=== PATIENT | male | born 1945 | race Caucasian/White ===

== ENCOUNTER 2016-10-11 11:16 | Inpatient (IN) | payer OTHER, MEDICARE ==
[2016-10-11] MEDS ORDERED: Aspirin Low Dose CHEW TAB* 81 MG PO ONE (11:35)
[2016-10-11 12:22] LABS: Hematocrit 46 % (42-52); Hemoglobin 15.4 g/dl (14.0-18.0); Mean Corpuscular HGB Conc 33 g/dl (31-36); Mean Corpuscular Hemoglobin 29 pg (27-31); Mean Corpuscular Volume 87 fL (80-94); Mean Platelet Volume 7 um3 (7.4-10.4); Red Blood Count 5.32 10^6/ul (4.0-5.4); Red Cell Distribution Width 13 % (10.5-15); White Blood Count 6.7 10^3/ul (3.5-10.8)
[2016-10-11 12:33] LABS: BUN/Creatinine Ratio 17.7 (8-20); Calcium 8.9 mg/dL (8.6-10.3); EGFR African American 82.7 (>60); EGFR Non-African American 64.3 (>60); Globulin 2.9 g/dL (2-4); Total Bilirubin 0.9 mg/dL (0.2-1.0); Total Protein 6.9 g/dL (6.4-8.9)
--- NOTE | 2016-10-11 13:02 | RAD ---
INDICATION: Chest pain COMPARISON: Chest x-ray dated May 29, 2014 TECHNIQUE: Single AP portable view of the chest was obtained. FINDINGS: Image quality is compromised due to the relative inferiority of a portable chest x-ray. The heart and mediastinum exhibit normal size and contour. The lungs are grossly clear. There is no evidence of a large pleural effusion. Visualized bones are normal for the patient's age. IMPRESSION: No radiographic evidence for acute cardiopulmonary abnormality on this portable chest x-ray.
[2016-10-11] MEDS ORDERED: Acetaminophen TAB* 325 MG PO PRN (13:23)
[2016-10-11] MEDS ORDERED: Ondansetron INJ* 2 MG/ML VIAL IV PRN (13:23)
[2016-10-11] MEDS ORDERED: Enoxaparin(*) 40 MG/0.4 ML SYR SUBCUT SCH (14:00)
[2016-10-11] MEDS ORDERED: Heparin DRIP 25,000 UNITS(*) 25,000 UNITS/500 ML BAG IVPB SCH (15:00)
[2016-10-11] MEDS ORDERED: Heparin VIAL(*) 5000 UNITS/ML VIAL (FIVE THOUSAND) IV SCH (15:00)
[2016-10-11] MEDS: Metoprolol Tartrate TAB* 25 MG PO SCH ×2 (15:18→21:49)
--- NOTE | 2016-10-11 20:16 | HP ---
CC: Dr. Kauffman. * ADMISSION HISTORY AND PHYSICAL: DATE OF ADMISSION: 10/11/16 PRIMARY CARE PROVIDER: Dr. Kauffman. ADMITTING PROVIDER: LUAN Oswald SUPERVISING PHYSICIAN: Dr. Jerrell Rosenthal * (DICTATED BY LUAN OSWALD) CHIEF COMPLAINT: Chest pain. HISTORY OF PRESENT ILLNESS: This is a 70-year-old gentleman with hyperlipidemia , who presented to the emergency department after 2 episodes of chest pain earlier this morning. First episode occurred about 10 a.m., while he was up walking around the house, just doing usual activities. He had a sudden onset of what he described as severe substernal chest pain that radiated through to his back. Symptoms resolved after approximately 30 minutes but with associated diaphoresis. About 30 minutes later he had another episode that was of similar intensity and length. At that time he took an aspirin at home and presented to the emergency department. He had no associated nausea or palpitations. No shortness of breath, cough or complains of recent illness. No fever or chills. He is asymptomatic at the time of evaluation. PAST MEDICAL HISTORY: Hyperlipidemia. PAST SURGICAL HISTORY: Appendectomy. HOME MEDICATIONS: Crestor of unknown strength. FAMILY HISTORY: Patient's father had an acute CA at 45 and then of cardiac complications at the age of 54, multiple males on his father side had similar cardiac complication. SOCIAL HISTORY: Patient lives at home with his . He is a professor at [employer], and denies any regular alcohol consumption and no smoking history. REVIEW OF SYSTEMS: As noted above in HPI. All other systems reviewed and considered negative. PHYSICAL EXAM: GENERAL: This is a very pleasant 70-year-old gentleman accompanied by his , in no acute distress at the time of evaluation. INITIAL VITALS: Temperature 97.9 degrees Fahrenheit, pulse 80 beats per minute , respiratory rate 20 per minute, oxygen saturation 98% on room air, blood pressure 144/94 mmHg. HEENT: Head is normocephalic, atraumatic. Mucous membranes are pink and moist. RESPIRATORY: Lugs are clear to auscultation. No wheezes, crackles or rhonchi. CARDIOVASCULAR: Heart has a regular rate and rhythm without murmurs, rubs or gallops. ABDOMEN: Soft and nontender to palpation. EXTREMITIES: No lower extremity edema. SKIN: Limited exam shows no concerning rashes or lesions. PSYCH: The patient is alert, and appropriately oriented. LABORATORY DATA: CBC is unremarkable with white blood cell count to 6700, hemoglobin 15.4 g/dL and platelet count of 209,000. Comprehensive metabolic panel is unremarkable, sodium was 136 mmol/L, potassium 4.0, BUN 20, creatinine 1.13. Glucose of 106 mg/dL. Transaminases and total bilirubin within normal limits. Lactic acid negative at 0.9. Troponin negative at 0.00. IMAGIN. EKG shows a normal sinus rhythm. 2. Chest x-ray shows no acute process. ASSESSMENT AND PLAN: This is a pleasant 70-year-old gentleman with history of hyperlipidemia who presents with complaints of chest pain, which has now resolved. 1. Chest pain - patient's history is concerning for this to be cardiac in origin. Initial EKG and troponin are unremarkable. Patient will be admitted for a period of observation with continued telemetry monitoring and serial troponins as well as stress testing for the morning, assuming his troponins remain negative. We will check a fasting lipid panel. With his complaints of radiation through to his back, we will also check a D-dimer. He is asymptomatic at the time of evaluation making a dissection much less likely. 2. Hypertension - patient is moderately hypertensive in the emergency department, and states that last time he saw his primary care provider he was also slightly hypertensive. We will not initiate antihypertensive medications at this time, but monitor during his hospital stay and if it remains persistently elevated we will recommend antihypertensive medications at the time of discharge. 3. Hyperlipidemia, plan to continue his Crestor. 4. Code status: The patient is a full code. 5. DVT prophylaxis. Patient was started on subcu Lovenox daily. 6. Healthcare proxy is patient's . DISPOSITION: The patient is being admitted to observation status with anticipated possible discharge for tomorrow. LUAN OSWALD [id number]/[facility] #: [id number] MTDD
--- NOTE | 2016-10-11 21:52 | PN ---
Hospitalist Progress Note 2nd troponin elevated to 0.10. Patient remained CP free. Heparin drip with bolus started. Requested consult from Dr Javier Singh. Possible cath v stress test in am.
--- NOTE | 2016-10-11 23:44 | CONS ---
CC: LUAN Costa CARDIAC CONSULTATION NOTE: DATE OF CONSULTATION: 10/11/16 INDICATION FOR CONSULTATION: Angina. HISTORY OF PRESENT ILLNESS: The patient is a 70-year-old gentleman with very little past medical history who came to the emergency room for chest pain. The patient states he woke up this morning in his usual health and then later in the morning started noticing some chest pain that radiated to his back and shoulder. He also got some diaphoresis with this discomfort. His initial episode of chest pain resolved, but then decided to come to the emergency room. On the car ride to the emergency room, he had return of the same discomfort. It was much more intense and lasted much longer. He was also fairly diaphoretic with this symptom. When he arrived to the emergency room, he was actually pain free and has been pain free since being in the emergency room. His initial EKG demonstrates normal sinus rhythm with nonspecific T wave abnormalities. It is unchanged from his EKG from February 2016. The patient's initial troponin level was 0, second troponin 0.10. PAST MEDICAL HISTORY: He has a history of hypercholesterolemia. PAST SURGICAL HISTORY: Appendectomy in February 2016. OUTPATIENT MEDICATIONS: 1. Crestor 5 mg a day. 2. Cialis p.r.n. ALLERGIES: No known drug allergies. FAMILY HISTORY: No family history of early coronary artery disease or cardiac arrhythmias. SOCIAL HISTORY: He is retired. He denies tobacco or alcohol use. PHYSICAL EXAMINATION: Height is 5 feet 10 inches, weight 203 pounds. Temperature 97.4, heart rate of 68, blood pressure 137/77, respiratory rate is 16, oxygen saturation 97% on room air. Sclerae anicteric. Oropharynx is pink without erythema. Carotids are 2+ without bruits. JVD is normal. Thyroid is normal. Cardiac Exam: S1, S2 without any murmurs, rubs, or gallops. Lungs are clear to auscultation bilaterally. There is no dullness to percussion. Abdomen is soft, nontender, and nondistended with normoactive bowel sounds. Extremities show no edema. He has 2+ pulses throughout. The patient is awake, alert, and oriented. He moves all 4 extremities equally. LABORATORY DATA/DIAGNOSTIC STUDIES: CBC within normal limits. Chemistry is within normal limits. Troponins as described above. IMPRESSION: This is a 70-year-old gentleman with a history of hypercholesterolemia who comes to the emergency room because of chest pain. His chest pain is very suspicious for coronary in origin. He does have a minimally elevated troponin level. The patient was started on heparin and aspirin. The patient will be observed overnight. His troponins will be cycled every 6 hours and if his troponin levels continue to go up, I will consider cardiac catheterization. If his troponin levels level off or go down, then we will schedule for exercise nuclear stress test in the morning. This was discussed with Pierre Rincon. [id number]/[facility] #: [id number] TAJ
[2016-10-11] MEDS ORDERED: NS 0.9% 1000 ML* 1,000 ML IV SCH (23:45)
[2016-10-11] MEDS ORDERED: diPHENhydraMINE PO* 25 MG PO PRN (23:58)
[2016-10-11] MEDS ORDERED: Diazepam TAB(*) 5 MG PO PRN (23:58)
[2016-10-12 01:15] LABS: Hematocrit 45 % (42-52); Hemoglobin 14.9 g/dl (14.0-18.0); Mean Corpuscular HGB Conc 33 g/dl (31-36); Mean Corpuscular Hemoglobin 29 pg (27-31); Mean Corpuscular Volume 86 fL (80-94); Mean Platelet Volume 7 um3 (7.4-10.4); Red Blood Count 5.21 10^6/ul (4.0-5.4); Red Cell Distribution Width 14 % (10.5-15); White Blood Count 7.6 10^3/ul (3.5-10.8)
[2016-10-12 01:25] LABS: Calcium 8.8 mg/dL (8.6-10.3); EGFR African American 95.3 (>60); EGFR Non-African American 74.1 (>60); Potassium 3.7 mmol/L (3.5-5.0)
[2016-10-12 01:33] LABS: Troponin I 0.55 ng/mL (<0.04)
[2016-10-12 05:17] LABS: HDL Cholesterol 32.1 mg/dL
[2016-10-12 05:21] LABS: Troponin I 0.49 ng/mL (<0.04)
[2016-10-12] MEDS: Metoprolol Tartrate TAB* 25 MG PO SCH ×2 (07:18→20:44)
[2016-10-12] MEDS: Aspirin EC Low Dose* 81 MG TAB.EC PO SCH (07:19)
[2016-10-12] MEDS ORDERED: fentaNYL* 50 MCG/ML 2 ML VIAL (100 MCG VIAL) ONE (07:40)
[2016-10-12] MEDS ORDERED: Iohexol 350 (CONTRAST) 200 ML MDV IV ONE (07:41)
[2016-10-12] MEDS ORDERED: Heparin 2 UNITS/ML IVPREMIX* 2,000 ML IV ONE (07:41)
[2016-10-12] MEDS ORDERED: Midazolam* 1 MG/ML 5 ML VIAL (5 MG) ONE (07:41)
[2016-10-12] MEDS ORDERED: Lidocaine 1% INJ* 10 MG/ML 30 ML SDV ONE (07:41)
[2016-10-12] MEDS: LORazepam TAB(*) 0.5 MG PO PRN ×2 (07:48→12:09)
[2016-10-12] MEDS ORDERED: nitroGLYCERIN DRIP* 250 ML ONE (08:40)
[2016-10-12] MEDS ORDERED: Heparin(*) 1000 UNIT/ML 10 ML VIAL CATH LAB IV ONE (08:40)
[2016-10-12] MEDS ORDERED: Heparin 2 UNITS/ML IVPREMIX* 1,000 ML IV ONE (08:48)
[2016-10-12] MEDS ORDERED: Ticagrelor* 90 MG TAB PO ONE (08:49)
[2016-10-12] MEDS ORDERED: Bivalirudin(*) 250 MG VIAL ONE (08:51)
[2016-10-12] MEDS ORDERED: Atorvastatin* 10 MG TAB PO SCH (09:00)
[2016-10-12] MEDS ORDERED: Nitroglycerin TAB 0.4 MG* 0.4 MG TAB SL PRN (09:47)
[2016-10-12] MEDS ORDERED: fentaNYL* 50 MCG/ML 2 ML VIAL (100 MCG VIAL) IV PRN (09:47)
[2016-10-12] MEDS ORDERED: oxyCODONE/Acetamin 5/325 MG* TAB PO PRN (09:47)
[2016-10-12] MEDS ORDERED: NS 0.9% 1000 ML* 1,000 ML IV SCH (10:00)
--- NOTE | 2016-10-12 10:05 | ED ---
Michael Carey Auryana, scribed for Chavo Davison MD on 10/11/16 at 1137 . HPI Chest Pain - HPI Summary HPI Summary: 70 year old female presents with chest pain starting at 10:00 AM today. Patient reports that he had just finished minimal housekeeping and then began to sit down when the intense pain started. The pain is located at the center of the chest and is characterized as a pressure. The pain lasted 15-20 minutes, and was accompanied by diaphoresis, and then subsided. Initially, the pain did not radiate. He reports that the pain subsided but then returned again - the pain radiating to back and to the top of the shoulder. He denies any nausea, jaw pain , arm pain, lower extremity pain, or any lower extremity edema. He denies any chest pain now. COMPLIANCE AIDE 1 baby ASA. Patient spoke with PCP office who recommended that he follow his symptoms, and then be seen if symptoms do not reside. Stress test - 1 year ago. PMHx is significant for chronic RUQ pain, appendectomy (Dr. Cuevas), plantar fasciitis, and HLD - slightly elevated, but no history of gastric ulcers, reflux, hiatal hernia, HTN or DM. FHx is significant for heart problems ( father at age 54, uncles late 50's/early 60's due to heart issues) but no history of aneurysm. SHx is not significant for tobacco or alcohol use. is his PCP. Patient is a professor at [employer]. - History of Current Complaint Chief Complaint: EDChestPainROMI Time Seen by Provider: 10/11/16 11:34 Hx Obtained From: Patient Onset/Duration: Started Hours Ago, Resolved Time of Onset: 10:00 Timing: Intermittent - 2 episodes, Lasting Minutes - 15-20 Initial Severity: Mild Current Severity: Mild Pain Intensity: 3 - reports no chest pain now Pain Scale Used: 0-10 Numeric Chest Pain Location: Discrete at: - central chest Chest Pain Radiates: Yes Chest Pain Radiates To:: Shoulder - top back and shoulder Character: Pressure/Squeezing Associated Signs and Symptoms: Positive: Chest Pain, Diaphoresis - with second episode. Negative: Nausea, Calf Pain/Swelling Related History: Similar Episode/Dx as: - no - Additional Pertinent History Primary Care Physician: [id number] - Allergy/Home Medications Allergies/Adverse Reactions: Allergies Allergy/AdvReac Type Severity Reaction Status Date / Time No Known Allergies Allergy Verified 10/11/16 12:52 PMH/Surg Hx/FS Hx/Imm Hx Endocrine/Hematology History: Denies: Hx Diabetes, Hx Thyroid Disease Cardiovascular History: Reports: Hx Hypercholesterolemia Denies: Hx Hypertension Respiratory History: Denies: Hx Asthma, Hx Chronic Obstructive Pulmonary Disease (COPD) GI History: Denies: Hx Ulcer Psychiatric History: Reports: Hx Anxiety Infectious Disease History: Denies: Hx Hepatitis, Hx Human Immunodeficiency Virus (HIV), Traveled Outside the [place] in Last 30 Days - Family History Known Family History: Positive: Cardiac Disease - heart problems , Diabetes, Other - prostate cancer - Social History Occupation: Employed Full-time Lives: With Family Alcohol Use: Rare Hx Substance Use: No Substance Use Type: Reports: None Hx Tobacco Use: No Smoking Status (MU): Never Smoked Tobacco Review of Systems Positive: Skin Diaphoresis. Negative: Fever, Chills Eyes: Negative Negative: Erythema ENT: Negative Negative: Sore Throat Positive: Chest Pain Respiratory: Negative Negative: Shortness Of Breath, Cough Gastrointestinal: Negative Negative: Abdominal Pain, Vomiting, Nausea Genitourinary: Negative Negative: dysuria, hematuria Musculoskeletal: Negative Negative: Myalgia - no jaw or arm pain , Edema Skin: Negative Negative: Rash Neurological: Negative, Other - NO DIZZINESS Psychological: Normal All Other Systems Reviewed And Are Negative: Yes Physical Exam - Summary Physical Exam Summary: Constitutional: Well-developed, Well-nourished, Alert. (-) Distressed Skin: Warm, Dry HENT: Normocephalic; Atraumatic Eyes: Conjunctiva normal Neck: Musculoskeletal ROM normal neck. (-) JVD, (-) Stridor, (-) Tracheal deviation Cardio: Rhythm regular, rate normal, Heart sounds normal; Intact distal pulses; The pedal pulses are 2+ and symmetric. Radial pulses are 2+ and symmetric. (-) Murmur Pulmonary/Chest wall: Effort normal. (-) Respiratory distress, (-) Wheezes, (-) Rales Abd: Soft, (-) Tenderness, (-) Distension, (-) Guarding, (-) Rebound Musculoskeletal: (-) Edema Lymph: (-) Cervical adenopathy Neuro: Alert, Oriented x3 Psych: Mood and affect Normal Triage Information Reviewed: Yes Vital Signs On Initial Exam: Initial Vitals Temp Pulse Resp BP Pulse Ox 97.9 F 80 20 144/94 98 10/11/16 11:18 10/11/16 11:18 10/11/16 11:18 10/11/16 11:18 10/11/16 11:18 Vital Signs Reviewed: Yes Diagnostics - Vital Signs Vital Signs Temp Pulse Resp BP Pulse Ox 10/11/16 11:18 97.9 F 80 20 144/94 98 - Laboratory Result Diagrams: 10/11/16 12:00 10/11/16 12:00 Lab Statement: Any lab studies that have been ordered have been reviewed, and results considered in the medical decision making process. - Radiology CXR Xray Interpretation: No Acute Changes Radiology Interpretation Completed By: Radiologist - EKG 11:34 EKG Interpretation: sinus rhythm @ 71 BPM, no STEMI. Re-Evaluation - Re-Evaluation First Eval Re-Evaluation Time: 12:42 - discussed labs and plan to admit to [facility] Chest Pain Course/Dx - Course Assessment/Plan: 70 year old female presents with chest pain starting at 10:00 AM today. Patient reports that he had just finished minimal housekeeping and then began to sit down when the intense pain started. The pain is located at the center of the chest and is characterized as a pressure. The pain lasted 15- 20 minutes, and was accompanied by diaphoresis, and then subsided. Initially, the pain did not radiate. He reports that the pain subsided but then returned again - the pain radiating to back and to the top of the shoulder. He denies any nausea, jaw pain, arm pain, lower extremity pain, or any lower extremity edema. He denies any chest pain now. COMPLIANCE AIDE 1 baby ASA. Patient spoke with PCP office who recommended that he follow his symptoms, and then be seen if symptoms do not reside. Stress test - 1 year ago. PMHx is significant for chronic RUQ pain, appendectomy (Dr. Cuevas), plantar fasciitis, and HLD - slightly elevated, but no history of gastric ulcers, reflux, hiatal hernia, HTN or DM. FHx is significant for heart problems ( father at age 54, uncles late 50's/early 60's due to heart issues) but no history of aneurysm. SHx is not significant for tobacco or alcohol use. is his PCP. Patient is a professor at [employer]. Test results show glucose of 106 , lactic acid 0.9, and troponin 0.00. LFTs are WNL. CXR NAD. EKG - sinus rhythm @ 71 BPM, no STEMI. I discussed the case with Dr. Rosenthal who accepts the patient for admission. DDx: biliary colic , ACS, reflux, do not suspect aneurysmal disease. Dx: chest pain unspecified. - Chest Pain Differential Diagnosis/HQI/PQRI: ACS, Other: - biliary colic, Reflux, do not suspect aneurysmal disease - Diagnoses Provider Diagnoses: Chest pain, unspecified Discharge - Discharge Plan Condition: Stable Disposition: ADMITTED TO [facility] The documentation as recorded by the Michael guevara Auryana accurately reflects the service I personally performed and the decisions made by me, Chavo Davison MD.
--- NOTE | 2016-10-12 10:41 | PN ---
Subjective Date of Service: 10/12/16 Interval History: Patient seen and examined at bedside. He is s/p cardiac catheterization and on bedrest, is at bedside. He denies CP, SOB, n/v or any acute complaint. No c/o pain at groin site currently. Plan of care discussed with patient and his . Telemetry: sinus bradycardia 58 Family History: Unchanged from Admission Social History: Unchanged from Admission Past Medical History: Unchanged from Admission Objective Active Medications: Acetaminophen (Tylenol Tab*) 650 mg PO Q4H PRN PRN Reason: FEVER/PAIN Aspirin (Aspirin Ec Low Dose*) 81 mg PO DAILY CLIF Last Admin: 10/12/16 07:19 Dose: 81 mg Atorvastatin Calcium (Lipitor*) 80 mg PO 1700 CLIF Diazepam (Valium Tab(*)) 5 mg PO ONCE PRN PRN Reason: SUPERVISOR AUDIT CLERKS TO TAXICAB COORDINATOR Stop: 10/12/16 23:58 Diphenhydramine HCl (Benadryl Po*) 25 mg PO ONCE PRN PRN Reason: SUPERVISOR AUDIT CLERKS TO TAXICAB COORDINATOR Stop: 10/12/16 23:58 Fentanyl Citrate (Fentanyl*) 25 mcg IV Q2H PRN PRN Reason: PAIN Heparin Sodium (Porcine) (Heparin Vial(*)) 0 units IV .PER PROTOCOL CLIF PRN Reason: Protocol Heparin Sodium/Dextrose (Heparin Drip 25,000 Units(*)) 25,000 units in 500 mls @ 0 mls/hr IVPB .PER RATE CLIF; Per Protocol PRN Reason: Protocol Last Admin: 10/11/16 15:52 Dose: 27 mls/hr Sodium Chloride (Ns 0.9% 1000 Ml*) 1,000 mls @ 100 mls/hr IV .per rate CLIF Lorazepam (Ativan Tab(*)) 0.5 mg PO Q4H PRN PRN Reason: ANXIETY Last Admin: 10/12/16 07:48 Dose: 0.5 mg Metoprolol Tartrate (Lopressor Tab*) 12.5 mg PO Q12HR CLIF Last Admin: 10/12/16 07:18 Dose: 12.5 mg Nitroglycerin (Nitroglycerin Tab 0.4 Mg*) 0.4 mg SL Q5M PRN PRN Reason: ANGINA Ondansetron HCl (Zofran Inj*) 4 mg IV Q4H PRN PRN Reason: NAUSEA/VOMITING Oxycodone/Acetaminophen (Percocet 5/325 Tab*) 1 tab PO Q6H PRN PRN Reason: PAIN Ticagrelor (Brilinta*) 90 mg PO BID [facility] Vital Signs 10/11/16 10/11/16 10/11/16 13:30 14:00 14:30 Temperature Pulse Rate 69 72 72 Respiratory 18 17 21 Rate Blood Pressure 144/87 142/83 150/86 (mmHg) O2 Sat by Pulse 97 98 97 Oximetry 10/11/16 10/11/16 10/11/16 14:32 15:08 15:10 Temperature 97.7 F Pulse Rate 69 Respiratory 16 25 11 Rate Blood Pressure 138/79 (mmHg) O2 Sat by Pulse 98 Oximetry 10/11/16 10/11/16 10/11/16 15:20 15:30 15:40 Temperature Pulse Rate Respiratory 17 10 16 Rate Blood Pressure (mmHg) O2 Sat by Pulse Oximetry 10/11/16 10/11/16 10/11/16 15:42 15:50 16:00 Temperature 97.4 F Pulse Rate 68 Respiratory 16 9 4 Rate Blood Pressure 137/77 (mmHg) O2 Sat by Pulse 97 Oximetry 10/11/16 10/11/16 10/11/16 16:10 16:20 16:30 Temperature Pulse Rate Respiratory 3 6 1 Rate Blood Pressure (mmHg) O2 Sat by Pulse Oximetry 10/11/16 10/11/16 10/11/16 16:40 16:50 17:00 Temperature Pulse Rate Respiratory 14 14 22 Rate Blood Pressure (mmHg) O2 Sat by Pulse Oximetry 10/11/16 10/11/16 10/11/16 17:10 17:20 17:30 Temperature Pulse Rate Respiratory 18 2 16 Rate Blood Pressure (mmHg) O2 Sat by Pulse Oximetry 10/11/16 10/11/16 10/11/16 17:40 19:33 23:22 Temperature 97.7 F 97.7 F Pulse Rate 73 65 Respiratory 18 16 20 Rate Blood Pressure 142/83 156/90 (mmHg) O2 Sat by Pulse 98 96 Oximetry 10/12/16 10/12/16 10/12/16 03:23 06:30 07:10 Temperature 98.0 F 98.2 F Pulse Rate 71 80 Respiratory 20 20 16 Rate Blood Pressure 113/61 143/93 (mmHg) O2 Sat by Pulse 99 99 Oximetry 10/12/16 10/12/16 07:48 10:24 Temperature 98.4 F Pulse Rate 64 Respiratory 18 16 Rate Blood Pressure 142/97 (mmHg) O2 Sat by Pulse 95 Oximetry Oxygen Devices in Use Now: None Appearance: Middle aged male patient, lying in bed, NAD Eyes: No Scleral Icterus Ears/Nose/Mouth/Throat: Clear Oropharnyx Neck: NL Appearance and Movements; NL JVP Respiratory: Symmetrical Chest Expansion and Respiratory Effort, Clear to Auscultation Cardiovascular: NL Sounds; No Murmurs; No JVD, RRR Abdominal: NL Sounds; No Tenderness; No Distention Extremities: - - right groin site benign, distal pulses 2+ Neurological: Alert and Oriented x 3, NL Muscle Strength and Tone Lines/Tubes/Other Access: Clean, Dry and Intact Peripheral IV Result Diagrams: 10/12/16 01:02 10/12/16 01:02 Assess/Plan/Problems-Billing Assessment: Mr. Thomas is a 70 yo male with a PMH of HLD who presented to the ED on 10/11 with concern for chest pain and NSTEMI. - Patient Problems (1) NSTEMI (non-ST elevated myocardial infarction) Code(s): I21.4 - NON-ST ELEVATION (NSTEMI) MYOCARDIAL INFARCTION Comment: Trop peaked at 0.55 Patient now s/p cardiac catheterization with PCI. Continue ASA, ticagrelor, metoprolol Atorvastatin increased to 80 mg daily (2) HTN (hypertension) Code(s): I10 - ESSENTIAL (PRIMARY) HYPERTENSION Comment: SBP 140s-150s Continue metoprolol BID. (3) HLD (hyperlipidemia) Code(s): E78.5 - HYPERLIPIDEMIA, UNSPECIFIED Comment: Continue atorvastatin 80 mg daily. (4) DVT prophylaxis Comment: Heparin gtt Status and Disposition: OBV admit. Anticipate potential dc tomorrow.
--- NOTE | 2016-10-12 11:57 | CATH ---
CC: Dr. Javier Singh; Dr. Kauffman * DATE OF PROCEDURE: 10/12/2016 - ROOM #ICU-04 INDICATION FOR PROCEDURE: The patient presents with oft-MX-doydykhko posterior wall myocardial infarction with critical disease involving the mid circumflex into mid obtuse marginal branch. PROCEDURE: Primary stenting of the mid circumflex into mid obtuse marginal branch with placement of a 3.0 x 32 mm long Synergy drug-eluting stent post dilated in the more proximal area to 3.5 to 3.6 mm. The patient had already undergone diagnostic cardiac catheterization by Dr. Javier Singh, who explained the findings to the patient and made the recommendation for stenting to the circumflex area. The patient had an existing [address] Heparin had been stopped more than an hour- and-a-half earlier. Medications given included Angiomax bolus and an Angiomax drip, Brilinta 180 mg orally on the decision to proceed with intervention. The patient had already received aspirin therapy. Guiding catheter utilized was a 6 Italian VL4 curve left coronary guide catheter. Guidewire was a Runthrough, regular length. Stent: A 3.0 x 32 mm Synergy drug-eluting stent. Postdeployment balloon inflation catheter: 3.5 x 12 mm long NC Emerge balloon. RESULTS: Successful reduction of critical 85 followed by 90 percent lesions in mid circumflex into mid obtuse marginal branch with 0 percent residual stenosis , MEEK 3 flow, no dissection seen. The patient should be maintained on Brilinta 90 mg b.i.d. and a baby aspirin for a minimum of one year with consideration for 18 months with lower dose 60 mg b.i.d. of Brilinta for the last six months. High dose statin therapy will be instituted. Further medical management and risk factor adjustments will be made through the patient's primary social media job titles, Dr. Javier Singh. [id number]/[facility] #: [id number] [facility] CENTERAdolfo
[2016-10-12] MEDS ORDERED: LORazepam TAB(*) 0.5 MG PO ONE (12:38)
[2016-10-12] MEDS: CMCS: Rosuvastatin (NF) 20 MG TAB PO SCH (17:34)
[2016-10-12] MEDS: Ticagrelor* 90 MG TAB PO SCH (20:44)
[2016-10-13 06:05] LABS: Hematocrit 44 % (42-52); Hemoglobin 14.9 g/dl (14.0-18.0); Mean Corpuscular HGB Conc 34 g/dl (31-36); Mean Corpuscular Hemoglobin 29 pg (27-31); Mean Corpuscular Volume 87 fL (80-94); Mean Platelet Volume 7 um3 (7.4-10.4); Red Blood Count 5.08 10^6/ul (4.0-5.4); Red Cell Distribution Width 13 % (10.5-15); White Blood Count 9.6 10^3/ul (3.5-10.8)
[2016-10-13 06:23] LABS: Albumin 3.8 g/dL (3.2-5.2); Calcium 8.7 mg/dL (8.6-10.3); EGFR African American 113.4 (>60); EGFR Non-African American 88.2 (>60); Globulin 2.6 g/dL (2-4); Potassium 3.9 mmol/L (3.5-5.0); Total Protein 6.4 g/dL (6.4-8.9)
--- NOTE | 2016-10-13 07:56 | PN ---
Subjective Date of Service: 10/13/16 Interval History: Patient seen and examined at bedside. He is ambulating in the room. Patient denies CP, SOB, n/v, groin pain, leg weakness/pain. He reports occasional heart fluttering that started with his Brilinta. Symptoms have improved from yesterday. Discussed importance of compliance with Brilinta/ASA therapies; patient able to verbalize back understanding. Telemetry: SR 98 Family History: Unchanged from Admission Social History: Unchanged from Admission Past Medical History: Unchanged from Admission Objective Active Medications: Acetaminophen (Tylenol Tab*) 650 mg PO Q4H PRN PRN Reason: FEVER/PAIN Aspirin (Aspirin Ec Low Dose*) 81 mg PO DAILY [facility] Last Admin: 10/12/16 07:19 Dose: 81 mg Fentanyl Citrate (Fentanyl*) 25 mcg IV Q2H PRN PRN Reason: PAIN Sodium Chloride (Ns 0.9% 1000 Ml*) 1,000 mls @ 100 mls/hr IV .per rate [facility] Last Admin: 10/12/16 10:00 Dose: 100 mls/hr Lorazepam (Ativan Tab(*)) 0.5 mg PO Q4H PRN PRN Reason: ANXIETY Last Admin: 10/12/16 12:09 Dose: 0.5 mg Metoprolol Tartrate (Lopressor Tab*) 25 mg PO Q12HR [facility] Nitroglycerin (Nitroglycerin Tab 0.4 Mg*) 0.4 mg SL Q5M PRN PRN Reason: ANGINA Ondansetron HCl (Zofran Inj*) 4 mg IV Q4H PRN PRN Reason: NAUSEA/VOMITING Oxycodone/Acetaminophen (Percocet 5/325 Tab*) 1 tab PO Q6H PRN PRN Reason: PAIN Rosuvastatin Calcium (Crestor (Nf)) 40 mg PO 1700 [facility] Last Admin: 10/12/16 17:34 Dose: 40 mg Ticagrelor (Brilinta*) 90 mg PO BID [facility] Last Admin: 10/12/16 20:44 Dose: 90 mg Vital Signs 10/12/16 10/12/16 10/12/16 10:00 10:15 10:24 Temperature 98.4 F Pulse Rate 59 60 64 Respiratory 12 15 16 Rate Blood Pressure 149/90 144/88 142/97 (mmHg) O2 Sat by Pulse 97 97 95 Oximetry 10/12/16 10/12/16 10/12/16 10:30 10:45 11:00 Temperature Pulse Rate 62 68 66 Respiratory 16 11 16 Rate Blood Pressure 147/106 142/103 145/96 (mmHg) O2 Sat by Pulse 99 99 99 Oximetry 10/12/16 10/12/16 10/12/16 11:12 11:15 11:30 Temperature 98.4 F Pulse Rate 64 67 67 Respiratory 16 15 13 Rate Blood Pressure 142/97 148/83 135/89 (mmHg) O2 Sat by Pulse 95 99 99 Oximetry 10/12/16 10/12/16 10/12/16 12:00 12:09 12:30 Temperature 98 F Pulse Rate 68 76 Respiratory 17 15 16 Rate Blood Pressure 160/90 163/82 (mmHg) O2 Sat by Pulse 98 100 Oximetry 10/12/16 10/12/16 10/12/16 12:40 13:00 13:30 Temperature Pulse Rate 73 75 Respiratory 21 12 16 Rate Blood Pressure 172/79 176/153 (mmHg) O2 Sat by Pulse 97 100 Oximetry 10/12/16 10/12/16 10/12/16 13:33 13:41 14:00 Temperature Pulse Rate 73 62 Respiratory 14 17 10 Rate Blood Pressure 163/76 139/86 (mmHg) O2 Sat by Pulse 98 98 Oximetry 10/12/16 10/12/16 10/12/16 15:00 15:44 16:00 Temperature 98.1 F Pulse Rate 81 Respiratory 19 20 Rate Blood Pressure 146/82 (mmHg) O2 Sat by Pulse 99 Oximetry 10/12/16 10/12/16 10/12/16 16:11 17:00 17:30 Temperature Pulse Rate 76 80 Respiratory 17 22 16 Rate Blood Pressure 146/83 153/80 (mmHg) O2 Sat by Pulse 100 99 Oximetry 10/12/16 10/12/16 10/12/16 18:00 19:00 19:44 Temperature 97.9 F Pulse Rate 68 67 Respiratory 16 15 Rate Blood Pressure 143/93 136/86 (mmHg) O2 Sat by Pulse 99 98 Oximetry 10/12/16 10/12/16 10/12/16 20:00 20:50 21:00 Temperature Pulse Rate 67 73 Respiratory 19 23 19 Rate Blood Pressure 146/89 151/89 (mmHg) O2 Sat by Pulse 99 98 Oximetry 07/10/12/16 10/12/16 21:59 22:00 22:59 Temperature Pulse Rate 70 Respiratory 24 17 13 Rate Blood Pressure 149/88 (mmHg) O2 Sat by Pulse 99 Oximetry 10/12/16 10/12/16 10/13/16 23:00 23:56 00:00 Temperature 98.7 F Pulse Rate 57 65 Respiratory 14 15 14 Rate Blood Pressure 131/63 (mmHg) O2 Sat by Pulse 99 97 Oximetry 10/13/16 10/13/16 10/13/16 00:01 00:04 01:00 Temperature Pulse Rate 64 67 69 Respiratory 14 15 17 Rate Blood Pressure 143/93 156/95 (mmHg) O2 Sat by Pulse 96 97 98 Oximetry 10/13/16 10/13/16 10/13/16 02:00 03:00 03:51 Temperature Pulse Rate 80 68 Respiratory 20 15 10 Rate Blood Pressure 150/90 (mmHg) O2 Sat by Pulse 99 97 Oximetry 10/13/16 10/13/16 10/13/16 04:00 05:00 06:00 Temperature 98.9 F Pulse Rate 72 67 110 Respiratory 13 16 23 Rate Blood Pressure 152/84 156/91 145/84 (mmHg) O2 Sat by Pulse 95 99 98 Oximetry 10/13/16 10/13/16 07:00 07:20 Temperature 97.9 F Pulse Rate 95 Respiratory 19 Rate Blood Pressure 145/94 (mmHg) O2 Sat by Pulse 97 Oximetry Oxygen Devices in Use Now: None Appearance: Male patient, ambulating in room, NAD Eyes: No Scleral Icterus Ears/Nose/Mouth/Throat: Clear Oropharnyx, Mucous Membranes Moist Neck: NL Appearance and Movements; NL JVP Respiratory: Symmetrical Chest Expansion and Respiratory Effort, Clear to Auscultation Cardiovascular: NL Sounds; No Murmurs; No JVD, RRR Abdominal: NL Sounds; No Tenderness; No Distention Extremities: No Edema, No Clubbing, Cyanosis, - - right groin dressing c/d/i, site benign Neurological: Alert and Oriented x 3, NL Gait, NL Muscle Strength and Tone Lines/Tubes/Other Access: Clean, Dry and Intact Peripheral IV Nutrition: Taking PO's Result Diagrams: 10/13/16 05:55 10/13/16 05:55 Assess/Plan/Problems-Billing Assessment: Mr. Thomas is a 70 yo male with a PMH of HLD who presented to the ED on 10/11 with concern for chest pain and NSTEMI. - Patient Problems (1) NSTEMI (non-ST elevated myocardial infarction) Code(s): I21.4 - NON-ST ELEVATION (NSTEMI) MYOCARDIAL INFARCTION Comment: Trop peaked at 0.55 Patient now s/p cardiac catheterization with PCI. Increase metoprolol to 25 mg BID. Continue ASA, ticagrelor. Atorvastatin increased to 80 mg daily (2) HTN (hypertension) Code(s): I10 - ESSENTIAL (PRIMARY) HYPERTENSION Comment: SBP 130s-150s Increase metoprolol from 12.5 to 25 mg BID (3) HLD (hyperlipidemia) Code(s): E78.5 - HYPERLIPIDEMIA, UNSPECIFIED Comment: Continue rosuvastatin 40 mg daily. (4) DVT prophylaxis Comment: Encourage ambulation SCDs Status and Disposition: OBV to inpatient admit. Dc to home when medically stable.
[2016-10-13] MEDS: Metoprolol Tartrate TAB* 25 MG PO SCH ×2 (08:49→20:34)
[2016-10-13] MEDS: Aspirin EC Low Dose* 81 MG TAB.EC PO SCH (08:49)
[2016-10-13] MEDS: Ticagrelor* 90 MG TAB PO SCH ×2 (08:49→20:34)
--- NOTE | 2016-10-13 09:40 | CATH ---
CARDIAC CATHETERIZATION NOTE: DATE OF PROCEDURE: 10/12/16 PROCEDURE: Cardiac catheterization including left heart catheterization, left ventriculogram, coron mirna angiography. INDICATION: Acute coronary syndrome. The patient is a 70-year-old gentleman with a history of hypercholesterolemia, who was admitted to [facility] yesterday with classic angina type symptoms. The patient had angina at rest. The patie nt's EKG showed no ischemic EKG changes. He had a peak troponin level 0.55. Cardiac catheterizatio n was recommended. PROCEDURE IN DETAIL: The patient was brought to the cardiac catheterization lab in a fasting state. Informed consent had been obtained prior to the procedure. All labs were reviewed. The patient w as placed supine on the catheterization table. Both femoral areas were cleaned and draped in the usu al fashion. 1% lidocaine was used for local anesthesia. The right femoral artery was entered by a modified Seldinger technique and a 6-Bulgarian sheath introducer was placed. The patient underwent cor onary angiography and left ventriculogram using a 6-Bulgarian pigtail catheter, 6-Bulgarian JL5 catheter a nd a 6-Bulgarian JR4 catheter. At the end of the procedure, the patient went on to stenting of the his left circumflex artery, see Dr. Cox's notes for those details. The patient tolerated the proced ure well, no complications. A total of 90 cc of Omnipaque dye was used, a total of 2 minutes of flu renata time. FINDINGS: Left ventriculogram: Left ventricle was normal in size and systolic function. Estimated ejection fraction 65%. There were no focal wall motion abnormalities. There was no mitral regurgi tation. Aortic valve and ascending aorta were normal. CORONARY ARTERIES: 1. Left main. The left main was normal in size. It bifurcated into the LAD and circumflex. There was no evidence of stenosis. 2. Left anterior descending artery. The LAD was normal in size. It gave off 2 diagonal vessels. The proximal LAD had an eccentric 40% stenosis. 3. Left circumflex artery. The circumflex artery was normal in size. It gave off two diagonal ves sels. The proximal left circumflex artery had a 60% stenosis. The first limb one vessel had a prox imal 90% stenosis. The remainder of the vessel is without disease. 4. Right coronary artery. The RCA was a dominant vessel, gave up the PDA. The distal right fernandez ry artery had mild diffuse disease. IMPRESSION: 1. Normal LV size and systolic function. 2. 90% stenosis to the OM1 vessel off the left circumflex artery. 3. 60% stenosis to the proximal left circumflex artery. 4. 40% stenosis of the proximal LAD. RECOMMENDATIONS: The patient will undergo stenting to the left circumflex artery with Dr. Cox. I will see the patient in followup in 1 to 2 weeks. [id number]/[facility] #: [id number]
--- NOTE | 2016-10-13 12:11 | PN ---
Subjective Date of Service: 10/13/16 - CC: R leg pain, s/p stent for chest pain. Interval History: The patient has had no recurrence of CP since stent. He had an hour of SOB post Brillinta. This AM the R thigh started to hurt medially and his notes it is larger than the LLE which is new. No orthopnea or PND. Medications Active Medications: Acetaminophen (Tylenol Tab*) 650 mg PO Q4H PRN PRN Reason: FEVER/PAIN Aspirin (Aspirin Ec Low Dose*) 81 mg PO DAILY [facility] Last Admin: 10/13/16 08:49 Dose: 81 mg Fentanyl Citrate (Fentanyl*) 25 mcg IV Q2H PRN PRN Reason: PAIN Sodium Chloride (Ns 0.9% 1000 Ml*) 1,000 mls @ 100 mls/hr IV .per rate [facility] Last Admin: 10/12/16 10:00 Dose: 100 mls/hr Lorazepam (Ativan Tab(*)) 0.5 mg PO Q4H PRN PRN Reason: ANXIETY Last Admin: 10/12/16 12:09 Dose: 0.5 mg Metoprolol Tartrate (Lopressor Tab*) 25 mg PO Q12HR [facility] Last Admin: 10/13/16 08:49 Dose: 25 mg Nitroglycerin (Nitroglycerin Tab 0.4 Mg*) 0.4 mg SL Q5M PRN PRN Reason: ANGINA Ondansetron HCl (Zofran Inj*) 4 mg IV Q4H PRN PRN Reason: NAUSEA/VOMITING Oxycodone/Acetaminophen (Percocet 5/325 Tab*) 1 tab PO Q6H PRN PRN Reason: PAIN Rosuvastatin Calcium (Crestor (Nf)) 40 mg PO 1700 [facility] Last Admin: 10/12/16 17:34 Dose: 40 mg Ticagrelor (Brilinta*) 90 mg PO BID [facility] Last Admin: 10/13/16 08:49 Dose: 90 mg Objective Vital Signs: Temp Pulse Resp BP Pulse Ox 98.1 F 63 16 130/85 99 10/13/16 11:02 10/13/16 12:00 10/13/16 11:00 10/13/16 12:00 10/13/16 12:00 Oxygen Devices in Use Now: None Appearance: fit appearing older male, seated, comfortable. Eyes: No Scleral Icterus, PERRLA Ears/Nose/Mouth/Throat: Clear Oropharnyx, Mucous Membranes Moist Neck: NL Appearance and Movements; NL JVP Respiratory: Symmetrical Chest Expansion and Respiratory Effort, Clear to Auscultation Cardiovascular: NL Sounds; No Murmurs; No JVD, RRR Abdominal: NL Sounds; No Tenderness; No Distention, No Hepatosplenomegaly Extremities: - - R inguinal area: dressing on, no ecchymosis or hematoma, R thigh is greater than L and mild tenderness to palpation medially. Excellent symtrical PTP. Skin: No Rash or Ulcers Neurological: Alert and Oriented x 3, NL Gait, NL Muscle Strength and Tone Lines/Tubes/Other Access: Clean, Dry and Intact Peripheral IV Laboratory Results: 10/13/16 05:55 10/13/16 05:55 INR (Anticoag Therapy) 0.97 (0.89-1.11) 10/12/16 01:02 APTT 102.5 seconds (26.0-36.3) H* 10/12/16 01:02 Total Bilirubin 1.00 mg/dL (0.2-1.0) 10/13/16 05:55 AST 22 U/L (13-39) 10/13/16 05:55 ALT 18 U/L (7-52) 10/13/16 05:55 Alkaline Phosphatase 82 U/L (34-104) 10/13/16 05:55 Total Protein 6.4 g/dL (6.4-8.9) 10/13/16 05:55 Albumin 3.8 g/dL (3.2-5.2) 10/13/16 05:55 Globulin 2.6 g/dL (2-4) 10/13/16 05:55 Albumin/Globulin Ratio 1.5 (1-3) 10/13/16 05:55 Triglycerides 171 mg/dL 10/12/16 04:50 Cholesterol 150 mg/dL 10/12/16 04:50 LDL Cholesterol 84 mg/dL 10/12/16 04:50 HDL Cholesterol 32.1 mg/dL 10/12/16 04:50 EKG Data: Monitor: NSR Assessment/Plan 70 yo male s/p NQMI and stent to Cx. Angina free. SOB with Brillinta and new pain in R groin post stick, R thigh > Left in girth. CAD: -ASA, Brillinta, BB, add ACEI -Activity discussed -Recommend rehab as outpatient. -Wound check Dr Singh w/in a week. SOB: Likely secondary to Brillinta, I discussed this known side effect. OK'd coffee/ caffiene. Continue Brillinta for now, follow up as outpatient. RLE pain/fullness. -check arterial ultrasound today. Chol: -Agree with increasing Crestor to 40 mg, send home on this dose. HTN: Improved post increased metoprolol dose. Low dose ACEI HS an option as well.
--- NOTE | 2016-10-13 14:04 | RAD ---
Indication: Right groin mass. Real-time sonography of the right groin was performed. The right common femoral artery appears patent. There appears to be a hypoechoic mass superficial to the right common femoral artery measuring 19 x 8 x 12 mm. There is a small central portion of this mass which demonstrates to fro flow from the common femoral artery with a small neck. 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 The remainder of the femoral artery appears patent. Additionally evaluation of the right deep venous system demonstrates wall thickening of the right proximal femoral vein. This is suggestive of sequela from prior thrombosis. The remainder of the deep venous structures of the right lower extremity are patent. IMPRESSION: Hypoechoic mass superficial to the right common femoral artery measuring 19 x 8 x 12 mm with some central to fro flow. This is consistent with a pseudoaneurysm with partial thrombosis. Wall thickening of the femoral vein likely sequela from prior thrombus.
[2016-10-13] MEDS ORDERED: LORazepam TAB(*) 0.5 MG PO PRN (15:16)
[2016-10-13] MEDS ORDERED: LORazepam INJ* 2 MG/ML 1 ML VIAL ONE (16:29)
[2016-10-13] MEDS: CMCS: Rosuvastatin (NF) 20 MG TAB PO SCH (18:07)
--- NOTE | 2016-10-14 07:42 | PN ---
Subjective Date of Service: 10/14/16 Interval History: Patient seen and examined at bedside. He reports less tenderness to the right groin and thigh and feels the swelling has gone down. He denies any chest pain, difficulty breathing. Feeling of chest fluttering has improved. Family History: Unchanged from Admission Social History: Unchanged from Admission Past Medical History: Unchanged from Admission Objective Active Medications: Acetaminophen (Tylenol Tab*) 650 mg PO Q4H PRN PRN Reason: FEVER/PAIN Aspirin (Aspirin Ec Low Dose*) 81 mg PO DAILY [facility] Last Admin: 10/13/16 08:49 Dose: 81 mg Fentanyl Citrate (Fentanyl*) 25 mcg IV Q2H PRN PRN Reason: PAIN Sodium Chloride (Ns 0.9% 1000 Ml*) 1,000 mls @ 100 mls/hr IV .per rate [facility] Last Admin: 10/12/16 10:00 Dose: 100 mls/hr Lisinopril (Prinivil Tab*) 2.5 mg PO BEDTIME [facility] Lorazepam (Ativan Tab(*)) 1 mg PO Q4H PRN PRN Reason: ANXIETY Metoprolol Tartrate (Lopressor Tab*) 25 mg PO Q12HR [facility] Last Admin: 10/13/16 20:34 Dose: 25 mg Nitroglycerin (Nitroglycerin Tab 0.4 Mg*) 0.4 mg SL Q5M PRN PRN Reason: ANGINA Ondansetron HCl (Zofran Inj*) 4 mg IV Q4H PRN PRN Reason: NAUSEA/VOMITING Oxycodone/Acetaminophen (Percocet 5/325 Tab*) 1 tab PO Q6H PRN PRN Reason: PAIN Rosuvastatin Calcium (Crestor (Nf)) 40 mg PO 1700 [facility] Last Admin: 10/13/16 18:07 Dose: 40 mg Ticagrelor (Brilinta*) 90 mg PO BID [facility] Last Admin: 10/13/16 20:34 Dose: 90 mg Vital Signs 10/13/16 10/13/16 10/13/16 08:00 09:00 09:51 Temperature Pulse Rate 86 87 83 Respiratory 16 16 Rate Blood Pressure 156/95 141/92 137/88 (mmHg) O2 Sat by Pulse 98 97 99 Oximetry 10/13/16 10/13/16 10/13/16 10:00 11:00 11:02 Temperature 98.1 F Pulse Rate 73 66 Respiratory 16 16 Rate Blood Pressure 134/85 125/87 (mmHg) O2 Sat by Pulse 100 100 Oximetry 10/13/16 10/13/16 10/13/16 12:00 13:00 14:00 Temperature Pulse Rate 63 64 73 Respiratory 16 16 Rate Blood Pressure 130/85 121/68 148/86 (mmHg) O2 Sat by Pulse 99 98 100 Oximetry 10/13/16 10/13/16 10/13/16 15:00 16:00 16:34 Temperature 97.9 F Pulse Rate 76 Respiratory 11 14 Rate Blood Pressure 126/70 137/75 (mmHg) O2 Sat by Pulse 100 Oximetry 10/13/16 10/13/16 10/13/16 17:00 18:00 19:00 Temperature Pulse Rate 75 79 71 Respiratory 14 17 16 Rate Blood Pressure 152/91 146/90 146/76 (mmHg) O2 Sat by Pulse 98 99 98 Oximetry 10/13/16 10/13/16 10/13/16 19:48 20:00 21:00 Temperature 98.0 F Pulse Rate 89 88 Respiratory 20 20 Rate Blood Pressure 136/90 141/94 (mmHg) O2 Sat by Pulse 97 97 Oximetry 10/13/16 10/13/16 10/13/16 22:00 23:00 23:03 Temperature 97.7 F Pulse Rate 83 75 Respiratory 20 17 Rate Blood Pressure 143/83 136/93 (mmHg) O2 Sat by Pulse 97 98 Oximetry 10/13/16 10/13/16 10/14/16 23:11 23:46 00:00 Temperature Pulse Rate 84 68 Respiratory 20 18 17 Rate Blood Pressure (mmHg) O2 Sat by Pulse 95 97 Oximetry 10/14/16 10/14/16 10/14/16 00:01 01:00 02:00 Temperature Pulse Rate 71 71 73 Respiratory 17 17 16 Rate Blood Pressure 143/85 150/94 122/64 (mmHg) O2 Sat by Pulse 97 97 97 Oximetry 10/14/16 10/14/16 10/14/16 02:53 03:00 03:28 Temperature 97.5 F Pulse Rate 77 Respiratory 16 17 Rate Blood Pressure 124/79 (mmHg) O2 Sat by Pulse 96 Oximetry 10/14/16 10/14/16 10/14/16 03:38 04:00 05:00 Temperature Pulse Rate 79 77 Respiratory 20 15 15 Rate Blood Pressure 143/85 130/88 (mmHg) O2 Sat by Pulse 95 95 Oximetry 10/14/16 06:00 Temperature Pulse Rate 74 Respiratory 15 Rate Blood Pressure 129/84 (mmHg) O2 Sat by Pulse 94 Oximetry Oxygen Devices in Use Now: None Appearance: Middle aged male, lying in bed, NAD Eyes: No Scleral Icterus Ears/Nose/Mouth/Throat: Clear Oropharnyx, Mucous Membranes Moist Neck: NL Appearance and Movements; NL JVP Respiratory: Symmetrical Chest Expansion and Respiratory Effort, Clear to Auscultation Cardiovascular: NL Sounds; No Murmurs; No JVD, RRR Abdominal: NL Sounds; No Tenderness; No Distention Extremities: No Clubbing, Cyanosis, - - No significant swelling or edema to right thigh noted. Groin and right thigh palpated with no elicited tenderness, distal pulses intact Neurological: Alert and Oriented x 3, NL Muscle Strength and Tone Lines/Tubes/Other Access: Clean, Dry and Intact Peripheral IV Nutrition: Taking PO's Result Diagrams: 10/13/16 05:55 10/13/16 05:55 Assess/Plan/Problems-Billing Assessment: Mr. Thomas is a 70 yo male with a PMH of HLD who presented to the ED on 10/11 with concern for chest pain and NSTEMI. - Patient Problems (1) Pseudoaneurysm Code(s): I72.9 - ANEURYSM OF UNSPECIFIED SITE Comment: Right groin pseudoaneurysm s/p cardiac catheterization Attempt for ultrasound guided compression last evening Re-evaluate this AM with potential thrombin injection intervention, depending on findings Continue bedrest and HOB 30 degrees or less (2) NSTEMI (non-ST elevated myocardial infarction) Code(s): I21.4 - NON-ST ELEVATION (NSTEMI) MYOCARDIAL INFARCTION Comment: Trop peaked at 0.55 Patient now s/p cardiac catheterization with PCI to circumflex.. Continue ASA, ticagrelor, metoprolol, rosuvastatin (3) HTN (hypertension) Code(s): I10 - ESSENTIAL (PRIMARY) HYPERTENSION Comment: Normotensive, 120s-140s Continue metoprolol Add low dose SENAIT-I bedtime (4) HLD (hyperlipidemia) Code(s): E78.5 - HYPERLIPIDEMIA, UNSPECIFIED Comment: Continue rosuvastatin 40 mg daily. (5) DVT prophylaxis Comment: Encourage ambulation SCDs Status and Disposition: Inpatient admit. Dc to home when medically stable.
--- NOTE | 2016-10-14 08:30 | RAD ---
INDICATION: Right SUPERVISOR CEREAL pseudoaneurysm COMPARISON: Similar examination acquired at the same date at 1246 hours TECHNIQUE: Real time ultrasound images of the right SUPERVISOR CEREAL pseudoaneurysm were acquired with lewis scale and Doppler color flow imaging at 1656 hours. FINDINGS: 15 minutes of direct pressure was applied to the partially thrombosed pseudoaneurysm. Subsequent imaging shows a small persistent bleed measuring approximately 1 cm in diameter. Normal color flow is recorded in the adjacent right SUPERVISOR CEREAL. IMPRESSION: Persistent partially thrombosed subcentimeter pseudoaneurysm after 15 minutes of direct sonographic manual pressure.
[2016-10-14] MEDS: Ticagrelor* 90 MG TAB PO SCH ×2 (08:56→21:11)
[2016-10-14] MEDS: Metoprolol Tartrate TAB* 25 MG PO SCH (08:57)
[2016-10-14] MEDS: Aspirin EC Low Dose* 81 MG TAB.EC PO SCH (08:57)
--- NOTE | 2016-10-14 10:15 | RAD ---
INDICATION: Reevaluate right common femoral pseudoaneurysm COMPARISON: Similar examination dated October 13, 2016 TECHNIQUE: Real time ultrasound images of the right common femoral pseudoaneurysm were acquired with lewis scale and Doppler color flow imaging. FINDINGS: Again seen is a small right common femoral pseudoaneurysm measuring approximately 2 cm in sagittal length and 8 mm x 1.3 cm in the axial plane. There is a very short neck measuring just over a millimeter in length between the common femoral artery and the extraluminal collection. IMPRESSION: Persistent small right common femoral pseudoaneurysm.
[2016-10-14] MEDS ORDERED: LORazepam INJ* 2 MG/ML 1 ML VIAL IV PUSH ONE (10:29)
[2016-10-14] MEDS ORDERED: LORazepam INJ* 2 MG/ML 1 ML VIAL ONE (10:29)
[2016-10-14] MEDS: CMCS: Rosuvastatin (NF) 20 MG TAB PO SCH (17:39)
--- NOTE | 2016-10-14 17:57 | RAD ---
INDICATION: Right SIENE MAKER pseudoaneurysm COMPARISON: Most recent comparison examination is from the same date at 0835 hours TECHNIQUE: Real time ultrasound images of the right SIENE MAKER pseudoaneurysm were acquired with lewis scale and Doppler color flow imaging. FINDINGS: There is a persistent small right SIENE MAKER pseudoaneurysm. Most of the pseudoaneurysm is thrombosed but there is persistent small amount of arterial phase flow immediately adjacent to the arterial wall defect. The defect measures approximately 2 mm in diameter. There is essentially no "neck" with the pseudoaneurysm being immediately adjacent to the SIENE MAKER. Pseudoaneurysm measures 2 cm and cephalocaudal projection and approximately 8 mm x 1.3 cm in the axial plane. IMPRESSION: No change in the small right SIENE MAKER pseudoaneurysm as described above. The dimension measurements are almost identical to the most recent ultrasound examination.
[2016-10-14] MEDS ORDERED: Metoprolol Tartrate TAB* 25 MG ONE (18:26)
[2016-10-14] MEDS ORDERED: Metoprolol Tartrate TAB* 25 MG PO ONE ×2 (18:30→22:00)
--- NOTE | 2016-10-14 20:15 | DS ---
CC: Dr. Paty Kauffman * MEDICINE TRANSFER SUMMARY: DATE OF ADMISSION: 10/11/16 DATE OF TRANSFER: 10/15/16 PRIMARY CARE PHYSICIAN: Dr. Paty Kauffman. PROVIDER: Radha Peralta NP ATTENDING PHYSICIAN: Dr. Tanisha Adame * (as dictated by Radha Peralta NP) CONSULTING PHYSICIAN: Dr. Javier Singh. CARDIOLOGY: Dr. Arpan Cox. INTERVENTIONAL RADIOLOGY: Dr. Wilber Roman. RECEIVING PHYSICIAN: Dr. Raymond Webster PRIMARY DISCHARGE DIAGNOSES: 1. Non-ST elevation myocardial infarction, status post cardiac catheterization with stent placement to the circumflex artery. 2. 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 3. Coronary artery disease, single-vessel disease. SECONDARY DISCHARGE DIAGNOSIS: Hyperlipidemia. MEDICATIONS AT DISCHARGE: 1. Aspirin 81 mg daily. 2. Lisinopril 2.5 mg at bedtime. 3. Metoprolol tartrate 25 mg q.12 hours. 4. Crestor 40 mg daily. 5. Brilinta 90 mg b.i.d. 6. Cialis 20 mg as instructed. Note, while the patient was inpatient, the patient also had an order for lorazepam 1 mg q.4 hours p.r.n. anxiety. Prior to admission, patient was only on low dose Crestor. HOSPITAL COURSE OF STAY: For full details, please refer to the H and P provided by LUAN Costa, progress notes, and consultations. In summary, Mr. Thomas is a 70-year-old male patient who presented to the emergency department after experiencing 2 episodes of chest pain on the morning of . He describes sudden-onset substernal chest pain that radiated through to his back with associated diaphoresis. It resolved within 30 minutes, but then occurred about 30 minutes later with similar intensity and length. The patient took his aspirin at home and came to the emergency department. His initial EKG and troponin were unremarkable. However, his troponins did start to elevate and peaked at 0.55. His D-dimer was not elevated. On 10/12/16, the patient underwent a cardiac catheterization, which he tolerated well, and single-vessel disease was noted; a stent was placed in the circumflex artery. The patient was maintained on bed rest following the procedure, although he reportedly ended bed rest a bit early due to agitation from lying flat. He has not had any recurrence of chest pain since the stent placement. The patient did report an hour of shortness of breath and some fluttering in his chest following the initiation of his Brilinta. Cardiology was notified. The patient was kept on the medication but watched closely. This did improve, and the patient was allowed to restart caffeine, as it does help with this known side effect. In terms of medical management, the patient was started on aspirin and Brilinta for the stent placement. Additionally, his rosuvastatin was increased to the maximum dose, per standard of care. He had been started on metoprolol, initially at 12.5 BID, but this has been increased to 25 mg BID as the patient's heart rate and blood pressure have been maintained in appropriate range. A low-dose SENAIT inhibitor has also been added for improved blood pressure control, in addition to the cardioprotective benefits. Prior to the initial discharge plan, the patient complained of right groin pain and a groin Doppler ultrasound was ordered on 10/13/16. The ultrasound did show an initial hypoechoic mass superficial to the right common femoral artery measuring 19 x 8 x 12 mm. This was consistent with a pseudoaneurysm with partial thrombosis. The patient underwent ultrasound-guided compression on the evening of 10/13/16 without resolution. On the morning of 10/14/16, the ultrasound was repeated and showed [id number] change in the size of the pseudoaneurysm, and ultrasound-guided compression was attempted again. At this point, it was felt that to inject site with thrombin will be difficult, and there is no vascular surgeon available at our facility should complications arise. Dr. Webster of [facility] V[facility] Surgery was consulted by interventional cardiology to review the records and imaging. For further details, please refer to the Vascular Surgery notes. Per his recommendation, the patient will be transferred to [facility] for further evaluation and management. CONCERNS AT DISCHARGE: Mr. Thomas will need to follow up with his PCP as scheduled. He is also to follow up with Dr. Singh, and the office will call the patient to make this appointment. DIET: Heart-healthy diet. Caffeine okay. ACTIVITY: Per Cardiology. The patient is currently on bed rest. CONDITION: Stable. DISPOSITION: [facility] TIME SPENT: Time spent on this discharge was approximately 60 minutes. Again, this is only a brief summary of the patient's hospital course of stay. For full details, please refer to the full medical record. If you have any further questions or need further assistance, please feel free to contact me at . TACHO WILLINGHAM [id number]/[facility] #: [id number] TAJ
[2016-10-14] MEDS ORDERED: Lisinopril TAB* 5 MG PO SCH (21:00)
--- NOTE | 2016-10-15 07:44 | PN ---
Subjective Date of Service: 10/15/16 Interval History: Patient seen and examined at bedside. Mr. Thomas denies any acute complaints, including CP, SOB, right groin/leg pain. He understands and is in agreement with transfer to [facility] for further vascular intervention. Telemetry: SR 78 Family History: Unchanged from Admission Social History: Unchanged from Admission Past Medical History: Unchanged from Admission Objective Active Medications: Acetaminophen (Tylenol Tab*) 650 mg PO Q4H PRN PRN Reason: FEVER/PAIN Last Admin: 10/14/16 21:56 Dose: 650 mg Aspirin (Aspirin Ec Low Dose*) 81 mg PO DAILY [facility] Last Admin: 10/14/16 08:57 Dose: 81 mg Fentanyl Citrate (Fentanyl*) 25 mcg IV Q2H PRN PRN Reason: PAIN Sodium Chloride (Ns 0.9% 1000 Ml*) 1,000 mls @ 100 mls/hr IV .per rate [facility] Last Admin: 10/12/16 10:00 Dose: 100 mls/hr Lisinopril (Prinivil Tab*) 2.5 mg PO BEDTIME [facility] Last Admin: 10/14/16 21:11 Dose: 2.5 mg Lorazepam (Ativan Tab(*)) 1 mg PO Q4H PRN PRN Reason: ANXIETY Metoprolol Tartrate (Lopressor Tab*) 50 mg PO Q12HR [facility] Nitroglycerin (Nitroglycerin Tab 0.4 Mg*) 0.4 mg SL Q5M PRN PRN Reason: ANGINA Ondansetron HCl (Zofran Inj*) 4 mg IV Q4H PRN PRN Reason: NAUSEA/VOMITING Oxycodone/Acetaminophen (Percocet 5/325 Tab*) 1 tab PO Q6H PRN PRN Reason: PAIN Rosuvastatin Calcium (Crestor (Nf)) 40 mg PO 1700 [facility] Last Admin: 10/14/16 17:39 Dose: 40 mg Ticagrelor (Brilinta*) 90 mg PO BID [facility] Last Admin: 10/14/16 21:11 Dose: 90 mg Vital Signs 10/14/16 10/14/16 10/14/16 07:52 07:56 08:00 Temperature 98 F Pulse Rate 86 Respiratory 25 20 Rate Blood Pressure 130/92 (mmHg) O2 Sat by Pulse 97 Oximetry 10/14/16 10/14/16 10/14/16 09:00 09:54 10:00 Temperature Pulse Rate 91 70 Respiratory 19 18 17 Rate Blood Pressure 141/95 (mmHg) O2 Sat by Pulse 99 96 Oximetry 10/14/16 10/14/16 10/14/16 10:04 10:32 11:00 Temperature Pulse Rate 75 71 Respiratory 19 15 15 Rate Blood Pressure 139/93 127/87 (mmHg) O2 Sat by Pulse 98 98 Oximetry 10/14/16 10/14/16 10/14/16 11:52 12:00 13:00 Temperature 97.4 F Pulse Rate 83 Respiratory 15 16 23 Rate Blood Pressure 132/91 146/93 (mmHg) O2 Sat by Pulse 95 Oximetry 10/14/16 10/14/16 10/14/16 14:00 14:27 15:00 Temperature Pulse Rate 79 96 91 Respiratory 17 21 24 Rate Blood Pressure 133/93 137/78 (mmHg) O2 Sat by Pulse 96 97 94 Oximetry 10/14/16 10/14/16 10/14/16 16:00 17:00 18:00 Temperature 99.1 F Pulse Rate 82 85 104 Respiratory 16 16 13 Rate Blood Pressure 130/93 132/77 127/78 (mmHg) O2 Sat by Pulse 95 96 98 Oximetry 10/14/16 10/14/16 10/14/16 19:00 19:22 19:27 Temperature 98.5 F Pulse Rate 105 Respiratory 18 18 Rate Blood Pressure 153/91 (mmHg) O2 Sat by Pulse 98 Oximetry 10/14/16 10/14/16 10/14/16 19:46 20:00 21:00 Temperature 98.7 F Pulse Rate 98 79 Respiratory 19 17 Rate Blood Pressure 150/89 129/73 (mmHg) O2 Sat by Pulse 98 96 Oximetry 10/14/16 10/14/16 10/14/16 22:00 23:00 23:08 Temperature Pulse Rate 79 72 65 Respiratory 17 17 15 Rate Blood Pressure 139/99 128/89 (mmHg) O2 Sat by Pulse 97 93 92 Oximetry 10/14/16 10/15/16 10/15/16 23:43 00:00 00:01 Temperature Pulse Rate 67 68 Respiratory 15 15 16 Rate Blood Pressure 109/66 (mmHg) O2 Sat by Pulse 94 93 Oximetry 10/15/16 10/15/16 10/15/16 01:00 02:00 03:00 Temperature Pulse Rate 68 70 74 Respiratory 14 16 10 Rate Blood Pressure 123/70 103/54 117/80 (mmHg) O2 Sat by Pulse 97 94 96 Oximetry 10/15/16 10/15/16 10/15/16 04:00 04:59 05:00 Temperature 98.6 F Pulse Rate 72 71 Respiratory 16 16 14 Rate Blood Pressure 107/58 97/63 (mmHg) O2 Sat by Pulse 94 94 Oximetry 10/15/16 10/15/16 10/15/16 05:52 06:00 07:20 Temperature 98.6 F Pulse Rate 70 Respiratory 14 17 Rate Blood Pressure 101/75 (mmHg) O2 Sat by Pulse 99 Oximetry Oxygen Devices in Use Now: None Appearance: Male patient, lying in bed, pleasant, NAD Eyes: No Scleral Icterus Ears/Nose/Mouth/Throat: Clear Oropharnyx, Mucous Membranes Moist Neck: NL Appearance and Movements; NL JVP Respiratory: Symmetrical Chest Expansion and Respiratory Effort, Clear to Auscultation Cardiovascular: NL Sounds; No Murmurs; No JVD, RRR Abdominal: NL Sounds; No Tenderness; No Distention Neurological: Alert and Oriented x 3, NL Muscle Strength and Tone Lines/Tubes/Other Access: Clean, Dry and Intact Peripheral IV Result Diagrams: 10/13/16 05:55 10/13/16 05:55 Assess/Plan/Problems-Billing Assessment: Mr. Thomas is a 70 yo male with a PMH of HLD who presented to the ED on 10/11 with concern for chest pain and NSTEMI. - Patient Problems (1) Pseudoaneurysm Code(s): I72.9 - ANEURYSM OF UNSPECIFIED SITE Comment: Right groin pseudoaneurysm s/p cardiac catheterization Multiple attempts made for ultrasound guided compression Imaging reviewed by [facility] vascular surgery, plan for transfer to [facility] for further intervention. Continue bedrest and HOB 30 degrees or less (2) NSTEMI (non-ST elevated myocardial infarction) Code(s): I21.4 - NON-ST ELEVATION (NSTEMI) MYOCARDIAL INFARCTION Comment: Trop peaked at 0.55 Patient now s/p cardiac catheterization with PCI to circumflex.. Continue ASA, ticagrelor, metoprolol, rosuvastatin (3) HTN (hypertension) Code(s): I10 - ESSENTIAL (PRIMARY) HYPERTENSION Comment: Normotensive Continue metoprolol, lisinopril (4) HLD (hyperlipidemia) Code(s): E78.5 - HYPERLIPIDEMIA, UNSPECIFIED Comment: Continue rosuvastatin 40 mg daily. (5) DVT prophylaxis Comment: SCDs Status and Disposition: Inpatient admit. Transfer to [facility].
--- NOTE | 2016-10-15 08:36 | RAD ---
Indication: Follow-up pseudoaneurysm. Real-time sonography of the right common femoral artery pseudoaneurysm was performed. Again noted is a partially thrombosed pseudoaneurysm measuring 2.1 x 0.7 x 1.4 cm. Compared to previous exam of October 14, 2016 no significant change is noted. Continued flow is noted in a small central portion of the pseudoaneurysm. IMPRESSION: Persistent partially thrombosed pseudoaneurysm unchanged from prior exam of October 14, 2016, October 13, 2016.
[2016-10-15] MEDS ORDERED: Metoprolol Tartrate TAB* 50 mg PO SCH (09:00)
[2016-10-15] MEDS: Aspirin EC Low Dose* 81 MG TAB.EC PO SCH (09:02)
[2016-10-15] MEDS: Ticagrelor* 90 MG TAB PO SCH (09:02)
[2016-10-15 14:26] VITALS: BP 124/83
--- NOTE | 2016-10-16 12:25 | DS ---
CC: Dr. Paty Kauffman; Dr. Raymond Webster, Vascular Surgery, [place] DISCHARGE SUMMARY: ADDENDUM: PRIMARY CARE PHYSICIAN: Dr. Paty Kauffman. HOSPITAL COURSE: Mr. Thomas received a consult from Dr. Webster of [facility] Vascular Surgery. The patient was recommended to be transferred to [facility] for further evaluation and treatment of the pseudoaneurysm of the right femoral common artery. However, there are no beds available at [facility], and it was reported that there were no open beds anticipated within the next [address] Webster, who happened to be rounding in the [place] area, came to see the patient and reviewed his scans. In discussion with the patient, Dr. Cox, and Vascular Surgery, it was determined that the patient has had a stable pseudoaneurysm for over 48 hours and it was felt that the pseudoaneurysm was stable enough for discharge to home. This was with the stipulation that the patient would be adherent to strict bed rest at home with minimal activity and no strenuous activity or lifting. The patient was also given the instruction to call Dr. Webster's office first thing Tuesday to obtain a time to be seen in the office for evaluation and management of his pseudoaneurysm. The patient was in agreement with this plan. The patient has been further observed here prior to discharge, which includes sitting on the edge of the bed and minimal activity with monitoring of the right groin prior to discharge. The patient has been advised that if he has any concerns or changes to the groin, concern for swelling, pain , or bleeding or increased bruising that he should present immediately to the [facility] ER with the plan of transferring the patient via ambulance to [facility]. These instructions have been reviewed with the patient at length and with his . The patient is opting to go home, and the plan is approved by the patient's field traffic investigator, Dr. Cox, as well as Dr. Webster of Vascular Surgery. The patient will be discharged to home on 10/15/16 with the plan to follow up with Dr. Webster first thing Tuesday. ACTIVITY: Bed rest. CONDITION: Stable. DISPOSITION: To home. TIME SPENT: Updated time spent on this discharge is approximately 70 minutes. Again, this is only a brief summary of the patient's hospital course of stay. For full details, please refer to the full medical record. Please also refer to the updated notes from Dr. Cox and Dr. Webster, from the patient's visit on 10/15/16. CLAU CAMARILLO, COUNTRY PRINTER APPRENTICE [id number]/[facility] #: [id number] TAJ
== END 2016-10-15 14:26 | disposition home or self-care (01) | DRG 247 ==
LOC: ED 11:16 → MEDTELE 13:23 → OBSVTOIN 10-12 09:47 → ICU 10-12 09:51
PROVIDERS: ADMIT Hospitalist; ATTEND Hospitalist
PROC: 027034Z Dilation of Coronary Artery, One Artery with Drug-eluting Intraluminal Device, Percutaneous Approach (ICD-10-PCS; 2016-10-12)
PROC: B2111ZZ Fluoroscopy of Multiple Coronary Arteries using Low Osmolar Contrast (ICD-10-PCS; 2016-10-12)
PROC: B2151ZZ Fluoroscopy of Left Heart using Low Osmolar Contrast (ICD-10-PCS; 2016-10-12)
PROC: 4A023N7 Measurement of Cardiac Sampling and Pressure, Left Heart, Percutaneous Approach (ICD-10-PCS; principal; 2016-10-12 08:00)
DX: I21.4 Non-ST elevation (NSTEMI) myocardial infarction (principal); I74.3 Embolism and thrombosis of arteries of the lower extremities; E78.5 Hyperlipidemia, unspecified; G89.29 Other chronic pain; R10.11 Right upper quadrant pain; Z82.49 Family history of ischemic heart disease and other diseases of the circulatory system; F41.9 Anxiety disorder, unspecified; E78.00 Pure hypercholesterolemia, unspecified; Z83.3 Family history of diabetes mellitus; Z80.42 Family history of malignant neoplasm of prostate; I25.10 Atherosclerotic heart disease of native coronary artery without angina pectoris; I72.4 Aneurysm of artery of lower extremity; Z79.82 Long term (current) use of aspirin
CPT/HCPCS: 36415; 71010; 80048; 80053; 80061; 83605; 84484; 85025; 85379; 85610; 85730; 93005; 93458; 99156; 99157; A9270-GY; C1725; C1760; C1876; C1887; C9600-LC; J1644; J2001; J2060; J2250; J3010

== ENCOUNTER 2016-10-19 10:25 | Observation (INO) | payer MEDICARE, OTHER ==
[2016-10-19 11:28] LABS: Hematocrit 44 % (42-52); Mean Corpuscular HGB Conc 34 g/dl (31-36); Mean Corpuscular Hemoglobin 29 pg (27-31); Mean Corpuscular Volume 86 fL (80-94); Mean Platelet Volume 7 um3 (7.4-10.4); Red Blood Count 5.13 10^6/ul (4.0-5.4); Red Cell Distribution Width 13 % (10.5-15); White Blood Count 7.5 10^3/ul (3.5-10.8)
--- NOTE | 2016-10-19 11:53 | RAD ---
Indication: Chest pain. Single frontal view of the chest performed at 1115 hours was reviewed. Comparison is made with previous exam dated October 11, 2016. No mediastinal shift is noted. Heart is of normal size and configuration. Lung syed appear clear. IMPRESSION: NO ACTIVE CARDIOPULMONARY DISEASE IS NOTED.
[2016-10-19 11:55] LABS: BUN/Creatinine Ratio 17.9 (8-20); Calcium 9.1 mg/dL (8.6-10.3); EGFR African American 83.6 (>60); Potassium 3.8 mmol/L (3.5-5.0); Total Bilirubin 1.4 mg/dL (0.2-1.0)
[2016-10-19 12:15] LABS: Troponin I 0.05 ng/mL (<0.04)
[2016-10-19] MEDS ORDERED: LORazepam TAB(*) 1 MG PO ONE (14:53)
[2016-10-19] MEDS ORDERED: Ticagrelor* 90 MG TAB PO SCH (14:54)
[2016-10-19] MEDS ORDERED: Ondansetron INJ* 2 MG/ML VIAL IV PRN (14:55)
[2016-10-19] MEDS ORDERED: Acetaminophen TAB* 325 MG PO PRN (14:55)
[2016-10-19] MEDS ORDERED: Iohexol 350* (CONTRAST) 500 ML MDV IV ONE (14:59)
[2016-10-19] MEDS: Metoprolol Tartrate TAB* 25 MG PO SCH ×2 (15:05→22:00)
[2016-10-19] MEDS ORDERED: Prasugrel (NF) 10 MG PO ONE (15:07)
--- NOTE | 2016-10-19 16:02 | RAD ---
INDICATION: Chest pain and shortness of breath. COMPARISON: Comparison is made with a prior chest x-ray study from October 19, 2016. TECHNIQUE: A CT angiogram of the chest was performed with intravenous following intravenous injection of 75 ml of Omnipaque 350 nonionic contrast. Contiguous axial sections were obtained from the lung apices through the lung bases. Images were reconstructed in the coronal and sagittal planes. FINDINGS: There is relatively homogeneous opacification of the pulmonary arteries. No intraluminal filling defect or pulmonary embolism is seen. The heart is within normal limits in size. There is calcific plaque within the coronary arteries.. No pericardial effusion is present. The thoracic aorta is normal in caliber. No significant enlarged mediastinal or hilar lymph nodes are seen. There are mild dependent bilateral lower lobe infiltrates suggestive of atelectasis. No pleural effusion or pneumothorax is seen. No significant focal osseous abnormality is seen. IMPRESSION: NO EVIDENCE FOR PULMONARY EMBOLISM.
[2016-10-19] MEDS ORDERED: Atorvastatin* 80 MG TAB PO SCH (17:00)
[2016-10-19] MEDS ORDERED: Lisinopril TAB* 5 MG PO SCH (21:00)
[2016-10-19] MEDS: Prasugrel (NF) 10 MG PO ONE ×2 (22:00→22:01)
[2016-10-19] MEDS: Heparin VIAL(*) 5000 UNITS/ML VIAL (FIVE THOUSAND) SUBCUT SCH (22:01)
--- NOTE | 2016-10-19 23:33 | HP ---
CC: Dr. Dos Santos; Dr. Elisha Uriarte; Dr. Cox * HISTORY AND PHYSICAL: DATE OF ADMISSION: 10/19/16 PRIMARY CARE PROVIDER: Dr. Dos Santos, it was Dr. Nik Uriarte. ATTENDING PHYSICIAN WHILE IN THE HOSPITAL: Lizette Morelos DO * (report dictated by Orville Mccain NP). CHIEF COMPLAINT: 1. Chest pain. 2. Shortness of breath. HISTORY OF PRESENT ILLNESS: Mr. Thomas is a 70-year-old male patient who just presented on 10/11/16, complaints of chest discomfort, underwent heart catheterization on 10/12/16, found to have multivessel coronary artery disease with a 90% lesion in the OM of the circ for which stent was placed. Unfortunately, the patient did develop a pseudoaneurysm which he followed up appropriately at [facility]. He was there yesterday. Ultrasound was obtained and it appears that the aneurysm had resolved and he was discharged. Unfortunately the last night, he developed some chest pressure, pain, and he felt like he could not get enough air. He he said that "I just felt like I couldn't get enough oxygen. He says my breathing pattern was off. I had to take quick shallow breath that is what he said to catch his breath and he felt like he was having chest tightness." The discomfort did not go away. He called up his gizzard skin remover's office today, Dr. Cox, and they have referred him to the ER. He states he got nitro and aspirin in the ambulance and he says he felt better. He did not take his metoprolol or Brilinta which was given here in the ED and he is symptom free currently. He denies having any calf pain. He says his right groin is painful, it is bruised from the recent intervention. He denies having any stomach discomfort. No recent cough, fevers , chills, and he says it does not hurt to take a deep breath. He does not feel short of breath now. D-dimer was checked, it was mildly elevated and because of the chest discomfort and the recent NSTEMI, we are asked to evaluate for admission. PAST MEDICAL HISTORY: Significant for: 1. Hypertension. 2. Hyperlipidemia. 3. Pseudoaneurysm. 4. AR. 5. CAD. PAST SURGICAL HISTORY: 1. He has had an appendectomy. 2. Cardiac catheterization. HOME MEDICATIONS: According to his discharge summary from 5 days ago include: 1. Aspirin 81 mg daily. 2. Metoprolol 25 mg every 12 hours. 3. Lisinopril 2.5 mg daily. 4. Crestor 40 mg daily. 5. Brilinta 90 mg p.o. b.i.d. 6. Cialis 20 mg to take as directed. ALLERGIES TO MEDICATIONS: Include SULFA DRUGS. FAMILY HISTORY: His mother at the age of 95. Father had a history of an AR. SOCIAL HISTORY: He does not smoke, does not drink. Surrogate decision maker is his . REVIEW OF SYSTEMS: There is no documented fever. He denied having any significant weight change. There was no double vision. He denies having any ear discharge. There is no rhinorrhea. There is no sore throat. No thyroid enlargement. He did admit to having chest pain, but there is none now. He denies any orthopnea, denies any nocturnal dyspnea. He denies having any abdominal pain. There is no nausea, no vomiting. No dysuria, no frequency. There is no seizure. No loss of consciousness. No pruritus and no skin ulceration. Review of 14 systems completed, all others negative. PHYSICAL EXAMINATION GENERAL: At this time, Mr. Thomas is a 70-year-old male patient. He appears to be well nourished, well developed. He does not appear to be in any acute distress. VITAL SIGNS: Blood pressure 121/74 with a pulse 76, respirations 18, O2 sat 100 %, temperature 98.4. HEENT: Head is atraumatic, normocephalic. Eyes: EOMs are intact. Sclerae anicteric and not pale. Throat: Oral mucosa appears to be moist. No oropharyngeal erythema. NECK: Supple. LUNGS: Clear to auscultation bilaterally. No wheezes, rales or rhonchi. HEART: Sounds S1 and S2. Regular rate and rhythm. No murmurs, rubs or gallops. ABDOMEN: Soft, flat, nontender. Bowel sounds present. EXTREMITIES: Pulses were 2+ throughout. His pedal pulses were intact. He had 5/5 strength. NEUROLOGIC: He is awake, alert, oriented x3. Tongue midline. Home Lighting Adviser were equal. No gross focal deficits. SKIN: Grossly intact at the insertion site from the calf and the right groin, he does have ecchymosis noted to his right medial thigh to just about the right groin. There were pulses felt here, but there are no thrills or bruits felt on exam. LABORATORY DATA/IMAGING: Today revealed a WBC of 7.5, RBC of 5.13, hemoglobin of 15.0, hematocrit of 44, platelet count 262. D-dimer was 429. Sodium was 135 , potassium 3.8, chloride of 104, bicarb 22, BUN 20, creatinine 1.12, glucose 113, lactic 1.1, calcium 9.1, total bilirubin 1.4, AST 29, ALT 26, alk phos 120. Troponin 0.05 down from his discharge troponin of 0.49 and his albumin was 4.0. He did have a chest x-ray obtained today, which revealed no active cardiopulmonary disease. He had an EKG obtained today, which showed a left anterior fascicular block with a normal sinus rhythm, no ST elevations or T- wave inversions were noted. It was reviewed to the previous EKG. To me, it looks similar with the exception the rate is a little faster now, he is at 94 versus 86, no acute changes that I can appreciate. Old medical records were reviewed. ASSESSMENT AND PLAN: Mr. Thomas is a 70-year-old male patient presenting to the emergency department today with complaints of shortness of breath and chest pressure and discomfort happening last night. On evaluation here in the ER today, it was noted that his troponin was mildly elevated at 0.05 and there was concern because of his recent heart catheterization and the recent myocardial infarction that he had. We were asked to evaluate for admission. He will be admitted under observation status for: 1. Chest pain with shortness of breath. I question that the Brilinta may be contributing to this as I do note it certainly can make the patients feel as if they are short of breath. He says that he has not been drinking any caffeine since he was on the medication. I did touch base with our account manager forest service sap ppm consultant today, actually Dr. Garzon, and then ran the case with him. Unfortunately , he did have Brilinta in the ED, but I am going to go ahead and give him Effient 30 mg tonight at 2100 due time for the Brilinta and instead of giving him Brilinta, we will give 30 of Effient and tomorrow we will give him 10 mg of Effient switching over to 10 mg a day and see if this helps with his symptoms. I will cycle his troponins. I am also going to get a CTA of his chest and if his troponins go up, then I will get a formal evaluation from our cardiology group. For the time being, he is chest pain free. Continue to monitor him. We will continue to follow. 2. History of pseudoaneurysm. He can continue to follow with Dr. Webster, it has now resolved and he can follow with his primary care provider. 3. History of myocardial infarction and coronary artery disease. Continue his aspirin and switch him to Brilinta. Continue the statin therapy and beta- amy. 4. Hypertension. Continue lisinopril and beta-amy. 5. Hyperlipidemia. Continue Crestor. 6. DVT prophylaxis. He is moderate risk, placed on heparin subcu. 7. Code status. Full code. 8. Fluids, electrolytes, and nutrition. He can have a heart healthy diet. TIME SPENT: Time spent on the admission was 60 minutes, greater than half the time was spent face to face with the patient obtaining my history and physical, the other half of the time was spent on going over the plan of care with the patient and implementing the place of care. I did discuss the plan of care with my attending, Dr. Morelos, she is in agreement. ORVILLE MCCAIN NP [id number]/[facility] #: [id number] TAJ
[2016-10-20 05:02] LABS: Hematocrit 43 % (42-52); Hemoglobin 14.7 g/dl (14.0-18.0); Mean Corpuscular HGB Conc 34 g/dl (31-36); Mean Corpuscular Hemoglobin 29 pg (27-31); Mean Corpuscular Volume 86 fL (80-94); Mean Platelet Volume 7 um3 (7.4-10.4); Red Blood Count 5.05 10^6/ul (4.0-5.4); Red Cell Distribution Width 13 % (10.5-15); White Blood Count 7.8 10^3/ul (3.5-10.8)
[2016-10-20 05:15] LABS: Calcium 8.7 mg/dL (8.6-10.3); EGFR African American 84.5 (>60); EGFR Non-African American 65.7 (>60); Potassium 4.2 mmol/L (3.5-5.0)
[2016-10-20] MEDS: Heparin VIAL(*) 5000 UNITS/ML VIAL (FIVE THOUSAND) SUBCUT SCH (06:07)
[2016-10-20 07:39] VITALS: BP 113/73
[2016-10-20] MEDS: Metoprolol Tartrate TAB* 25 MG PO SCH (08:40)
[2016-10-20] MEDS ORDERED: CMCS: Prasugrel (NF) 10 MG PO SCH (09:00)
[2016-10-20] MEDS ORDERED: Aspirin EC Low Dose* 81 MG TAB.EC PO SCH (09:00)
[2016-10-20] MEDS ORDERED: Rosuvastatin (NF) 20 MG TAB PO SCH (11:32)
--- NOTE | 2016-10-21 04:27 | DS ---
CC: Dr. Cox; Dr. Garzon; Dr. Dos Santos * DISCHARGE SUMMARY: DATE OF ADMISSION: 10/19/16 DATE OF DISCHARGE: 10/20/16 PRIMARY CARE PROVIDER: Dr. Dos Santos. PRIMARY CARDIOLOGY: Dr. Cox. DISCHARGE DIAGNOSIS: Dyspnea at night, most likely related to side effects of Brilinta. SECONDARY DIAGNOSES: 1. 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 2. History of hypertension. 3. Hyperlipidemia. 4. Coronary artery disease. 5. Appendectomy. MEDICATIONS AT DISCHARGE: Include: 1. Effient, which is prasugrel, 10 mg daily. 2. Metoprolol tartrate 25 mg twice a day. 3. Lisinopril 2.5 mg at bedtime. 4. Aspirin 81 mg daily. 5. Crestor 40 mg daily. 6. Cialis on a p.r.n. basis. LABORATORY DATA AND STUDIES PERFORMED DURING THE HOSPITAL STAY: Included: Sodium of 135, potassium of 4.2, chloride 105, carbon dioxide 23, BUN 20, and creatinine 1.11. The patient's troponins ranged from 0.05 to 0.04. CBC: White blood cell count of 7.8, hemoglobin of 14.7, hematocrit of 43, and platelets of 245. CT angiogram of the chest, obtained on 10/19/16, impression: "No evidence of pulmonary embolism." HOSPITALIZATION COURSE: Karl Thomas is a very nice 70-year-old male, who had a recent TX and stenting, on 10/12/16. Subsequently, he developed right femoral artery pseudoaneurysm for which he followed up with [facility] on 10/18/16. There, an ultrasound noted the pseudoaneurysm to be thrombosed. The patient came into the hospital on 10/19/16, complaining of dyspnea, especially at night. He stated also that occasionally he would have a sensation of chest heaviness or pressure, but not pain. He also thought that may be he was anxious. During the hospital stay, he noted to have heart palpitations, but his property and supply officer on the floor showed sinus bradycardia. I spoke with the patient and I thought that maybe what he thought was heart palpitations was actually related to gastric movement. Nevertheless, the patient was observed in a telemetry monitored bed, with no evidence of arrhythmias. His troponins continued to range between 0.05 and 0.04. I discussed the case with Dr. Garzon , the interventionalist. The patient's Brilinta was switched to Effient since the sensation of shortness of breath could be a side effects of Brilinta. On the Effient, the patient felt better and further encouraged to be discharged home on 10/20/16. At discharge, the patient is recommended to follow up instructions after a cardiac catheterization in regards to activity. The patient is to see Dr. Cox in the office in approximately 1 to 2 weeks for a followup cath. His medications are as above, please see that the Brilinta was discontinued and Effient was prescribed. The patient also received a 30-day worth of Effient at hospital discharge from our facility. Physical exam at the time of discharge, blood pressure of 113/73, heart rate of 75 and regular, respiratory rate 22, oxygen saturation 100% on room air, and temperature of 97.5. General Appearance: This is a very pleasant 70-year-old male, who is in no acute distress. Alert, awake, and oriented x3. HEENT: Head is atraumatic, normocephalic. Eyes: Pupils are equal and reactive to light and accommodation. Oropharynx clear. Mucosa moist. Neck: Supple. No JVD. No bruits bilaterally. Cardiovascular: Regular rate and rhythm. No murmurs. Respiratory: Clear to auscultation bilaterally. Abdomen: Soft and nontender. Bowel sounds present in all 4 quadrants. Extremities: There is no edema. Pluses are +2 bilaterally. No clubbing or cyanosis. On evaluation of the skin, the patient has a resolving ecchymotic area on the right groin. On evaluation of the pulse of the right groin, the patient has good femoral artery pulse and good peripheral pedal pulses bilaterally. At discharge, the patient is recommended to follow up with Dr. Dos Santos in 4 to 7 days, and Dr. Cox in 1 to 2 weeks. Please note that this is a short summary of patient's hospitalization. Please refer to further medical records for details [id number]/[facility] #: [id number] [facility]
--- NOTE | 2016-10-22 16:00 | ED ---
I, Oh,Soohyobani, scribed for Kenneth Zhong MD on 10/19/16 at 1111 . HPI Chest Pain - HPI Summary HPI Summary: This 70 y/o male presents to ED via ambulance for constant, waxing and waning chest tightness last night. Positive dyspnea -- "unusual breathing pattern", and increased belching. CP persisted overnight and this morning. Pt called Dr. Cox's office this morning and was directed to ED. NTG and ASA was given as EMS PLAY THERAPIST. which alleviate chest discomfort. PMHx is significant for recent placement of cardiac stent a week ago by Dr. Cox. Pt did not take his morning dose of Brillinta and metoprolol today. - History of Current Complaint Chief Complaint: EDChestPainROMI Time Seen by Provider: 10/19/16 10:56 Hx Obtained From: Patient, Medical Records Timing: Constant Pain Intensity: 2 Pain Scale Used: 0-10 Numeric Chest Pain Location: Diffuse Chest Pain Radiates: No Character: Tightness Aggravating Factor(s): Nothing Alleviating Factor(s): NTG 123, EMS Tx - NTG, ASA Associated Signs and Symptoms: Positive: Chest Pain, Shortness of Breath, Other : - Increased belching. Negative: Fever - Additional Pertinent History Primary Care Physician: [id number] - Allergy/Home Medications Allergies/Adverse Reactions: Allergies Allergy/AdvReac Type Severity Reaction Status Date / Time Sulfa Antibiotics Allergy Unknown Verified 10/19/16 16:45 Reaction Details PMH/Surg Hx/FS Hx/Imm Hx Endocrine/Hematology History: Denies: Hx Diabetes, Hx Thyroid Disease Cardiovascular History: Reports: Hx Hypercholesterolemia Denies: Hx Hypertension Respiratory History: Denies: Hx Asthma, Hx Chronic Obstructive Pulmonary Disease (COPD) GI History: Denies: Hx Ulcer Sensory History: Reports: Hx Cataracts - removal, Hx Contacts or Glasses - glasses Denies: Hx Hearing Aid Opthamlomology History: Reports: Hx Cataracts - removal, Hx Contacts or Glasses - glasses Psychiatric History: Reports: Hx Anxiety Infectious Disease History: No Infectious Disease History: Denies: Hx Hepatitis, Hx Human Immunodeficiency Virus (HIV), Traveled Outside the [place] in Last 30 Days - Family History Known Family History: Positive: Cardiac Disease - heart problems , Diabetes, Other - prostate cancer - Social History Alcohol Use: Rare Hx Substance Use: No Substance Use Type: Reports: None Hx Tobacco Use: No Smoking Status (MU): Never Smoked Tobacco Review of Systems Negative: Fever Positive: Chest Pain Positive: Shortness Of Breath Positive: Other - increased belching this morning All Other Systems Reviewed And Are Negative: Yes Physical Exam Triage Information Reviewed: Yes Vital Signs On Initial Exam: Initial Vitals Temp Pulse Resp BP Pulse Ox 98.4 F 99 12 103/81 99 10/19/16 10:30 10/19/16 10:30 10/19/16 10:30 10/19/16 10:30 10/19/16 10:30 Vital Signs Reviewed: Yes Appearance: Positive: Well-Appearing, No Pain Distress Skin: Positive: Warm, Skin Color Reflects Adequate Perfusion, Dry Head/Face: Positive: Normal Head/Face Inspection Eyes: Positive: Normal ENT: Positive: Normal ENT inspection Neck: Positive: Supple, Nontender Respiratory/Lung Sounds: Positive: Clear to Auscultation, Breath Sounds Present Cardiovascular: Positive: RRR - borderline tachycardic Abdomen Description: Positive: Nontender, Soft Musculoskeletal: Positive: Normal Neurological: Positive: Normal Psychiatric: Positive: Affect/Mood Appropriate AVPU Assessment: Alert - [place] Coma Scale Coma Scale Total: 15 Diagnostics - Vital Signs Vital Signs Temp Pulse Resp BP Pulse Ox 10/19/16 10:49 94 17 96 10/19/16 10:32 98.4 F 99 12 103/81 99 10/19/16 10:30 98.4 F 99 12 103/81 99 - Laboratory Lab Results: Lab Results 10/19/16 10/19/16 10/19/16 Range/Units 09:45 09:45 09:45 WBC 7.5 (3.5-10.8) 10^3/ul RBC 5.13 (4.0-5.4) 10^6/ul Hgb 15.0 (14.0-18.0) g/dl Hct 44 (42-52) % MCV 86 (80-94) fL MCH 29 (27-31) pg MCHC 34 (31-36) g/dl RDW 13 (10.5-15) % Plt Count 262 (150-450) 10^3/ul MPV 7 L (7.4-10.4) um3 Neut % (Auto) 66.2 (38-83) % Lymph % (Auto) 22.7 L (25-47) % [place] % (Auto) 9.9 H (1-9) % Eos % (Auto) 0.6 (0-6) % Baso % (Auto) 0.6 (0-2) % Absolute Neuts (auto) 4.9 (1.5-7.7) 10^3/ul Absolute Lymphs (auto) 1.7 (1.0-4.8) 10^3/ul Absolute Monos (auto) 0.7 (0-0.8) 10^3/ul Absolute Eos (auto) 0 (0-0.6) 10^3/ul Absolute Basos (auto) 0 (0-0.2) 10^3/ul Absolute Nucleated RBC 0 10^3/ul Nucleated RBC % 0 D-Dimer, Quantitative (Less Than 230) ng/mL Sodium 135 (133-145) mmol/L Potassium 3.8 (3.5-5.0) mmol/L Chloride 104 (101-111) mmol/L Carbon Dioxide 22 (22-32) mmol/L Anion Gap 9 (2-11) mmol/L BUN 20 (6-24) mg/dL Creatinine 1.12 (0.67-1.17) mg/dL Est GFR ( Amer) 83.6 (>60) Est GFR (Non-Af Amer) 65.0 (>60) BUN/Creatinine Ratio 17.9 (8-20) Glucose 113 H (70-100) mg/dL Lactic Acid 1.1 (0.5-2.0) mmol/L Calcium 9.1 (8.6-10.3) mg/dL Total Bilirubin 1.40 H (0.2-1.0) mg/dL AST 25 (13-39) U/L ALT 26 (7-52) U/L Alkaline Phosphatase 120 H (34-104) U/L Troponin I 0.05 H* (<0.04) ng/mL Total Protein 7.0 (6.4-8.9) g/dL Albumin 4.0 (3.2-5.2) g/dL Globulin 3.0 (2-4) g/dL Albumin/Globulin Ratio 1.3 (1-3) 10/19/16 10/19/16 Range/Units 14:04 14:35 WBC (3.5-10.8) 10^3/ul RBC (4.0-5.4) 10^6/ul Hgb (14.0-18.0) g/dl Hct (42-52) % MCV (80-94) fL MCH (27-31) pg MCHC (31-36) g/dl RDW (10.5-15) % Plt Count (150-450) 10^3/ul MPV (7.4-10.4) um3 Neut % (Auto) (38-83) % Lymph % (Auto) (25-47) % [place] % (Auto) (1-9) % Eos % (Auto) (0-6) % Baso % (Auto) (0-2) % Absolute Neuts (auto) (1.5-7.7) 10^3/ul Absolute Lymphs (auto) (1.0-4.8) 10^3/ul Absolute Monos (auto) (0-0.8) 10^3/ul Absolute Eos (auto) (0-0.6) 10^3/ul Absolute Basos (auto) (0-0.2) 10^3/ul Absolute Nucleated RBC 10^3/ul Nucleated RBC % D-Dimer, Quantitative 429 H (Less Than 230) ng/mL Sodium (133-145) mmol/L Potassium (3.5-5.0) mmol/L Chloride (101-111) mmol/L Carbon Dioxide (22-32) mmol/L Anion Gap (2-11) mmol/L BUN (6-24) mg/dL Creatinine (0.67-1.17) mg/dL Est GFR ( Amer) (>60) Est GFR (Non-Af Amer) (>60) BUN/Creatinine Ratio (8-20) Glucose (70-100) mg/dL Lactic Acid (0.5-2.0) mmol/L Calcium (8.6-10.3) mg/dL Total Bilirubin (0.2-1.0) mg/dL AST (13-39) U/L ALT (7-52) U/L Alkaline Phosphatase (34-104) U/L Troponin I 0.05 H* (<0.04) ng/mL Total Protein (6.4-8.9) g/dL Albumin (3.2-5.2) g/dL Globulin (2-4) g/dL Albumin/Globulin Ratio (1-3) Result Diagrams: 10/20/16 04:45 10/20/16 04:45 Lab Statement: Any lab studies that have been ordered have been reviewed, and results considered in the medical decision making process. - Radiology CXR Xray Interpretation: No Acute Changes Radiology Interpretation Completed By: Radiologist CTA chest Radiology Interpretation Completed By: Radiologist - Pending. Please see EMR for official reading - EKG 1043 Cardiac Rate: NL - at 94 bpm EKG Rhythm: Sinus Rhythm EKG Interpretation: Nonspecific diffuse changes Chest Pain Course/Dx - Course Course Of Treatment: Consultation: Dr. Cox (Interventionalist) at [address] Morelos (Hospitalist) at 1422 PM -- recommends CTA Assessment/Plan: Mr. Thomas came in with CP after a recent stenting. He has known CAD that is untreated and will be admitted for further evaluation. - Diagnoses Provider Diagnoses: Chest pain - Provider Notifications Discussed Care Of Patient With: Lizette Morelos Time Discussed With Above Provider: 14:22 Discharge - Discharge Plan Condition: Improved Disposition: ADMITTED TO [facility] documentation as recorded by the Rodri guevara Soohyun accurately reflects the service I personally performed and the decisions made by , Kenneth Zhong MD.
== END 2016-10-20 11:21 | disposition home or self-care (01) ==
LOC: ED 10:25 → MEDTELE 14:53
PROVIDERS: ADMIT Hospitalist; ATTEND Internal Medicine
DX: I25.2 Old myocardial infarction (principal); Z86.79 Personal history of other diseases of the circulatory system; I25.10 Atherosclerotic heart disease of native coronary artery without angina pectoris; R07.9 Chest pain, unspecified; Z90.89 Acquired absence of other organs; Z98.61 Coronary angioplasty status
CPT/HCPCS: 36415; 71010; 71275; 80048; 80053; 83605; 84484; 85025; 85379; 93005; 96374; 99284; A9270-GY; G0378; J1644; Q9967

== ENCOUNTER → 2017-10-03 05:59 | Day surgery (SDC) | payer BC ==
[~2017-10-03 05:59] MED LIST: Acetaminophen TAB* 325 MG PO PRN; Buffered Lidocaine 0.9% SYRIN* 5 ML/SYR SYRINGE INTRADERM ONE; Bupivacaine 0.25% W/EPI* 10 ML SDV ONE; Dexamethasone IV* 4 MG/ML 1 ML (4 MG) ONE; DiMENhydriNATE IV* 50 MG/ML VIAL IV PUSH PRN; Famotidine IV* 10 MG/ML 2 ML (20 mg) ONE; HYDROcodone/ACETAMIN 5-325 MG* 1 TAB ONE; HYDROcodone/ACETAMIN 5-325 MG* 1 TAB PO PRN; KETAMINE HCL* 50 MG/ML 10 ML VIAL ONE; Ketorolac INJ* 30 MG/ML 1 ML VIAL ONE; Lidocaine 1% INJ* 10 MG/ML 30 ML SDV ONE; Lidocaine 2% PF * 5 ML VIAL ONE; Midazolam* 1 MG/ML 2 ML VIAL (2 MG) ONE; Nalbuphine* 10 MG/ML 1 ML VIAL IV PRN; Naloxone* 0.4 MG/ML 1 ML VIAL IV PRN; Ondansetron INJ* 2 MG/ML VIAL IV PRN; PROCHLORPERAZINE INJ 5 MG/ML 2 ML VIAL IV PRN; Propofol* 10 MG/ML 20 ML BTL IV PUSH ONE; ceFAZolin 2 GM PREMIX (*) 2 GM/50 ML BAG IVPB ONE; diPHENhydraMINE IV* 50 MG/ML 1 ml VIAL (BENADRYL) ONE; fentaNYL* 50 MCG/ML 2 ML VIAL (100 MCG VIAL) IV PRN; fentaNYL* 50 MCG/ML 2 ML VIAL (100 MCG VIAL) ONE
--- NOTE | 2017-10-03 09:31 | BRIEFOPN ---
Brief Operative Note - Surgery Procedures: Procedures OPERATIVE REPORT PRE-OP: Right inguinal hernia POST-OP:Right indirect inguinal hernia PROCEDURE:Open repair with mesh of right indirect inguinal hernia SURGEON: MD Faith ANESTHESIA:Local with MAC Dr. Musa ASST: LUAN Medellin IVF: 1 liter of crystalloid EBL:min SPECIMEN:none DRAIN: none WOUND CLASS:One COMPLICATIONS: none TO PACU
[2017-10-03 10:45] VITALS: BP 101/74
--- NOTE | 2017-10-03 22:21 | OP ---
DATE OF OPERATION: 10/03/17 [facility] DATE OF : 47 SURGEON: Raymond Cuevas M.D. FURRIER DESIGNER: DAVID Hassan. ANESTHESIOLOGIST: Dr. Musa. ANESTHESIA: Local with monitored anesthesia care. PRE-OP DIAGNOSIS: Right inguinal hernia. POST-OP DIAGNOSIS: Right indirect inguinal hernia. OPERATIVE PROCEDURE: Open repair of right indirect inguinal hernia with mesh. ESTIMATED BLOOD LOSS: Minimal. SPECIMENS: None. DRAINS: None. COMPLICATIONS: None. WOUND CLASSIFICATION: I. DESCRIPTION OF PROCEDURE: Written informed consent was obtained, the right groin was marked with indelible ink and preoperative antibiotics were administered. The patient was taken to the operating room and placed in a supine position. Sequential compression devices and a warming blanket were applied. Anesthesia was administered, and the right groin and lower abdomen area was prepped and draped in the usual sterile fashion. Time-out verification was completed. 0.25% Marcaine was mixed with 1% lidocaine, was infiltrated in the right groin, and an oblique incision was made several fingerbreadths above the inguinal crease. This was carried down through Siddhartha fascia and the external oblique aponeurosis was identified at the external ring. The aponeurosis was opened in the direction of its fibers to expose the underlying spermatic cord and the inguinal floor. The cord structures were encircled with a 0.25-inch Nikolai drain at the pubic tubercle. We were able to evaluate the direct space and this was intact without evidence of an indirect hernia. There was a rather large cord lipoma extending and protuberant through a very patulous internal ring and this was from the cord structures, which were prevented from injury throughout. There also appeared to be an indirect hernia sac protruding only slightly through the internal ring and this was also reduced as well. The large lipoma was excised, but not sent for specimen. I suspect that the large lipoma was mainly what was being felt on physical examination, but the indirect hernia was also identified with a patulous internal ring and a small indirect sac. Once this dissection was complete, the ProGrip self gripping mesh by [employer] was then placed and sutured to the pubic tubercle medially, the musculature laterally, the conjoint tendon superiorly, and the inguinal ligament inferiorly. This covered the direct and indirect spaces nicely without tension or wrinkling. Hemostasis was assured. Additional Marcaine was infiltrated. The external oblique aponeurosis was closed with a running 3-0 Vicryl suture. The Siddhartha fascia was closed with a running 3-0 Vicryl suture. The skin was approximated with a subcuticular 4-0 Vicryl suture. Steri-Strips and sterile dressings were applied. The patient tolerated the procedure well and was taken to the recovery room in stable condition. [id number]/[facility] #: [id number] [facility]PITALAdolfo
== END | disposition home or self-care (01) ==
LOC: OR 05:59
PROVIDERS: ATTEND Surgery
DX: K40.90 Unilateral inguinal hernia, without obstruction or gangrene, not specified as recurrent (principal); I25.10 Atherosclerotic heart disease of native coronary artery without angina pectoris; Z95.5 Presence of coronary angioplasty implant and graft; Z87.891 Personal history of nicotine dependence; I10 Essential (primary) hypertension; E78.5 Hyperlipidemia, unspecified; I25.2 Old myocardial infarction; F41.9 Anxiety disorder, unspecified
CPT/HCPCS: C1781; J0690; J1100; J1200; J1885; J2250; J2704; J3010

== ENCOUNTER 2017-12-19 12:54 | Emergency (ER) | payer BC ==
--- NOTE | 2017-12-19 14:42 | ED ---
Abdominal Pain/Male - HPI Summary HPI Summary: A 72 y/o M presents to ED with c/o R-sided abd pain inferior to ribs that has been constant approx 3-5 days. Prior to the sx worsening, he was having this pain intermittently "for a long time." The pain is non-radiating. Associated sx : chills, fever (Tmax: 101.4 F), nausea, mild lightheadedness, fatigue, generalized arthralgia and myalgia. Denies: CP, SOB, v/d, BM changes. Patient was referred to ED by his PCP, Dr. Kauffman. Patient says he had blood work done recently that showed abnormal liver values. Patient also saw Dr. Schneider, urology, who thought pt might be having a recurrence of prostatitis. In office, his UA showed hematuria. Pt has taken Bactrim for 4-5 days. Patient has been experiencing episodes of high and low BP, as well as high and low pulse rate since taking the Bactrim. These undulating vital signs seem uncorrelated to the abd pain, per the patient. Nor does not the patient believe that the abd pain is related to eating/his diet. PMHx: [place] approx. 1 year ago; appy. - History of Current Complaint Chief Complaint: EDAbdPain Stated Complaint: ABD PAIN/ABNORMAL LABS Time Seen by Provider: 12/19/17 14:33 Hx Obtained From: Patient, Family/Wallpaper Cleaner - present Onset/Duration: Lasting Days, Still Present Timing: Constant Severity Initially: Moderate Severity Currently: Moderate Pain Intensity: 5 Pain Scale Used: 0-10 Numeric Location: Discrete At: RUQ Radiates: No Associated Signs And Symptoms: Positive: Fever, Other - see HPI. Negative: Chest Pain - Allergies/Home Medications Allergies/Adverse Reactions: Allergies Allergy/AdvReac Type Severity Reaction Status Date / Time ticagrelor [From Brilinta] Allergy Anaphylatic Verified 12/19/17 13:00 Shock Home Medications: Home Medications Lisinopril TAB* [Prinivil TAB 5 MG*] 2.5 mg PO DAILY 12/19/17 [History Confirmed 12/19/17] PMH/Surg Hx/FS Hx/Imm Hx Previously Healthy: No Endocrine/Hematology History: Denies: Hx Diabetes, Hx Thyroid Disease Cardiovascular History: Reports: Hx Coronary Artery Disease, Hx Hypercholesterolemia, Hx Hypertension, Other Cardiovascular Problems/Disorders - HYPERLIPIDEMIA Respiratory History: Denies: Hx Asthma, Hx Chronic Obstructive Pulmonary Disease (COPD) GI History: Reports: Other GI Disorders - 03/05 APPENDECTOMY, CURRENT- RIGHT INGUINAL HERNIA Denies: Hx Ulcer Sensory History: Reports: Hx Contacts or Glasses - GLASSES Denies: Hx Cataracts, Hx Hearing Aid Opthamlomology History: Reports: Hx Contacts or Glasses - GLASSES Denies: Hx Cataracts Psychiatric History: Reports: Hx Anxiety - Surgical History Surgery Procedure, Year, and Place: RIGHT ROTATOR CUFF [place]PA[place] [facility] [place] [facility] [place] CARDIAC CATH WITH STENT PLACEMENT SEPTEMBER 2016 [facility] [place] Hx Anesthesia Reactions: No Infectious Disease History: No Infectious Disease History: Denies: Hx Hepatitis, Hx Human Immunodeficiency Virus (HIV), Traveled Outside the [place] in Last 30 Days - Family History Known Family History: Positive: Cardiac Disease - heart problems , Diabetes, Other - prostate cancer - Social History Occupation: Retired Lives: With Family Alcohol Use: Rare Hx Substance Use: No Substance Use Type: Reports: None Hx Tobacco Use: No Smoking Status (MU): Never Smoked Tobacco Have You Smoked in the Last Year: No Review of Systems Positive: Fever, Chills, Fatigue Positive: Other - episodes of high/low BP and high/low pulse. Negative: Chest Pain Negative: Shortness Of Breath Positive: Abdominal Pain, Nausea. Negative: Vomiting, Diarrhea, Other - neg: BM changes Positive: Arthralgia - generalized, Myalgia - generalized Neurological: Other - pos: lightheadedness All Other Systems Reviewed And Are Negative: Yes Physical Exam - Summary Physical Exam Summary: VITAL SIGNS: Reviewed. GENERAL: Patient is a well-developed and nourished MALE who is lying comfortable in the stretcher. Patient is not in any acute respiratory distress. HEAD AND FACE: No signs of trauma. No ecchymosis, hematomas or skull depressions. No sinus tenderness. EYES: PERRLA, EOMI x 2, No injected conjunctiva, no nystagmus. EARS: Hearing grossly intact. Ear canals and tympanic membranes are within normal limits. MOUTH: Oropharynx within normal limits. NECK: Supple, trachea is midline, no adenopathy, no JVD, no carotid bruit, no c- spine tenderness, neck with full ROM. CHEST: Symmetric, no tenderness at palpation LUNGS: Clear to auscultation bilaterally. No wheezing or crackles. CVS: Regular rate and rhythm, S1 and S2 present, no murmurs or gallops appreciated. ABDOMEN: Soft, RUQ tenderness. No signs of distention. No rebound, no guarding, and no masses palpated. Bowel sounds are normal. EXTREMITIES: FROM in all major joints, no edema, no cyanosis or clubbing. NEURO: Alert and oriented x 3. No acute neurological deficits. Speech is normal and follows commands. SKIN: Dry and warm Triage Information Reviewed: Yes Vital Signs On Initial Exam: Initial Vitals Temp Pulse Resp BP Pulse Ox 96.9 F 74 19 101/81 100 12/19/17 12:56 12/19/17 12:56 12/19/17 12:56 12/19/17 12:56 12/19/17 12:56 Vital Signs Reviewed: Yes Diagnostics - Vital Signs Vital Signs Temp Pulse Resp BP Pulse Ox 12/19/17 12:56 96.9 F 74 19 101/81 100 - Laboratory Result Diagrams: 12/19/17 15:36 12/19/17 15:36 Lab Statement: Any lab studies that have been ordered have been reviewed, and results considered in the medical decision making process. - Radiology ABD XR Xray Interpretation: Positive (See Comments) - IMPRESSION: 1. NONOBSTRUCTIVE BOWEL GAS PATTERN. 2. LARGE AMOUNT OF STOOL WITHIN THE COLON DESCRIBED ABOVE. ED provider has reviewed this report. Radiology Interpretation Completed By: Radiologist - Ultrasound No standard instances Ultrasound Interpretation: Positive (See Comments) - Gallbladder U/S IMPRESSION : SONOGRAPHIC FINDINGS ARE CONSISTENT WITH GALLBLADDER POLYPS VERSUS ADENOMYOMATOSIS IN THIS OTHERWISE NONACUTE RIGHT UPPER QUADRANT ULTRASOUND. ED provider has reviewed this report. Ultrasound Interpretation Completed By: Radiologist - EKG 1517 Cardiac Rate: Bradycardia - 56bpm EKG Rhythm: Sinus Bradycardia ST Segment: Normal - no ST elevation Re-Evaluation - Re-Evaluation 1 Re-Evaluation Time: 17:30 Change: Unchanged Comment: Updating pt on results thus far and plans to order CT. Pt voiced understanding. Abdominal Pain Fem Course/Dx - Course Assessment/Plan: A 72 y/o M presents to ED with c/o R-sided abd pain inferior to ribs that has been constant approx 3-5 days. Prior to the sx worsening, he was having this pain intermittently "for a long time." The pain is non- radiating. Associated sx: chills, fever (Tmax: 101.4 F), nausea, mild lightheadedness, fatigue, generalized arthralgia and myalgia. Denies: CP, SOB, v /d, BM changes. Patient was referred to ED by his PCP, Dr. Kauffman. Patient says he had blood work done recently that showed abnormal liver values. Patient also saw Dr. Schneider, urology, who thought pt might be having a recurrence of prostatitis. In office, his UA showed hematuria. Pt has taken Bactrim for 4-5 days. Patient has been experiencing episodes of high and low BP, as well as high and low pulse rate since taking the Bactrim. These undulating vital signs seem uncorrelated to the abd pain, per the patient. Nor does not the patient believe that the abd pain is related to eating/his diet. PMHx: [place] approx. 1 year ago; appy. Blood tests without any significant abnormality except for creatinine 1.29 which is usually his baseline. AST is 45 AST is 94 which is significant decreased from a previous LFT test on 12/16/17. Total creatine kinase is 230. Urinalysis is negative for UTI. Abdominal x-ray impression: Non -obstructive bowel gas pattern. Latch amount of stool within the ascending, proximal transverse and distal descending and rectosigmoid colon, with gas filled distal transverse and proximal descending colon. Ultrasound of the right upper quadrant impression: Sonographic findings are consistent with gallbladder polyps versus adenomyomatosis otherwise non acute right upper quadrant. In the ED course the patient continues to have a slight pain is not significant. The patient did not require any pain medications. However because of the pain I decided to done abdominopelvic CT to rule out any intra- abdominal pathology. At this point the patient will be signed out to Dr. Maria to follow-up the test results of the abdominal pelvic CT. If normal the patient can be discharged home with a prescription for MiraLAX and the follow- up with the primary care physician. Patient is hemodynamically stable alert and oriented 3. - Diagnoses Differential Diagnosis/HQI/PQRI: Benign Prostatic Hyperplasia, Bowel Obstruction , Constipation, Gall Bladder Disease, Pancreatitis, Prostatitis, Testicular Torsion, Urinary Tract Infection Provider Diagnoses: Right sided abdominal pain Discharge - Sign-Out/Discharge Documenting (check all that apply): Sign-Out Patient Signing out patient TO: Douglas Maria - pending CT results - Discharge Plan Condition: Stable Disposition: HOME Patient Education Materials: Abdominal Pain (ED) Referrals: Paty Kauffman MD [Primary Care Provider] - 2 Days Additional Instructions: RETURN TO THE EMERGENCY DEPARTMENT FOR CHANGING OR WORSENING SYMPTOMS. FOLLOW UP WITH PRIMARY CARE PHYSICIAN IN 1-2 DAYS. - Attestation Statements Document Initiated by Scribe: Yes Documenting Scribe: Giuliana Vang Provider For Whom Scribe is Documenting (Include Credential): Dr. Al Nassar MD Scribe Attestation: I, Giuliana Vang, scribed for Dr. Al Nassar MD on 12/20/17 at 1823. Scribe Documentation Reviewed: Yes Provider Attestation: The documentation as recorded by the Giuliana guevara accurately reflects the service I personally performed and the decisions made by me, Dr. Al Nassar MD
--- NOTE | 2017-12-19 15:40 | RAD ---
HISTORY: abdominal pain COMPARISONS: None VIEWS: Frontal views of the abdomen. FINDINGS: BOWEL: There is a nonobstructive bowel gas pattern. There is a large amount of stool within the ascending, proximal transverse, distal descending, and rectosigmoid colon, with a gas-filled distal transverse and proximal descending colon CALCULI: There are no abnormal calculi. BONES AND SOFT TISSUES: Degenerative changes are noted. OTHER FINDINGS: The lung bases are clear. There is no subphrenic gas. IMPRESSION: 1. NONOBSTRUCTIVE BOWEL GAS PATTERN. 2. LARGE AMOUNT OF STOOL WITHIN THE COLON DESCRIBED ABOVE.
[2017-12-19 15:44] LABS: ABS Basophils 0 10^3/ul (0-0.2); ABS Eosinophils 0 10^3/ul (0-0.6); ABS Lymphocytes 2.1 10^3/ul (1.0-4.8); ABS Monocytes 0.6 10^3/ul (0-0.8); ABS Neutrophils 2.8 10^3/ul (1.5-7.7); ABS Nucleated RBC 0 10^3/ul; Eosinophil % 0.5 % (0-6); Hematocrit 42 % (42-52); Hemoglobin 14.5 g/dl (14.0-18.0); Lymphocyte % 36.9 % (25-47); Mean Corpuscular HGB Conc 34 g/dl (31-36); Mean Corpuscular Hemoglobin 30 pg (27-31); Mean Corpuscular Volume 87 fL (80-94); Mean Platelet Volume 6.4 um3 (7.4-10.4); Nucleated Red Blood Cells % 0.2; Platelet Count 248 10^3/ul (150-450); Red Cell Distribution Width 14 % (10.5-15); White Blood Count 5.6 10^3/ul (3.5-10.8)
[2017-12-19 15:47] LABS: Urine Appearance Cloudy; Urine Blood Negative (Negative); Urine Color Yellow; Urine Ketones Negative (Negative); Urine Protein Negative (Negative); Urine Specific Gravity 1.018 (1.010-1.030); Urine Urobilinogen Negative (Negative)
[2017-12-19 15:53] LABS: INR 0.91 (0.77-1.02)
--- NOTE | 2017-12-19 16:15 | RAD ---
HISTORY: Abdominal pain and elevated liver enzymes COMPARISONS: None TECHNIQUE: Multiple transverse and longitudinal ultrasound images were obtained of the right upper quadrant. FINDINGS: LIVER: The liver is normal in dimensions and echogenicity. Normal hepatic and portal venous blood flow is duplicated with color flow imaging. There is no gross intrahepatic biliary duct dilatation. GALLBLADDER AND EXTRAHEPATIC BILIARY DUCT: The gallbladder lumen there are multiple avascular well-circumscribed echogenic foci adherent to the wall of the gallbladder lumen, some with a "ball on a wall" appearance. Otherwise the gallbladder is normal in appearance without intraluminal stones. There is no pericholecystic fluid or gallbladder wall thickening. The common bile duct measures a maximum diameter of 5 mm. PANCREAS: The portions of the pancreas not obscured by bowel gas are normal in appearance. RIGHT KIDNEY: At the mid-level there is an anechoic and avascular structure consistent with a benign parapelvic cyst measuring 1 cm in greatest dimension. Otherwise the right kidney is normal in size, morphology and echogenicity. AORTA AND IVC: The visualized portions are normal in appearance and not pathologically dilated. IMPRESSION: SONOGRAPHIC FINDINGS ARE CONSISTENT WITH GALLBLADDER POLYPS VERSUS ADENOMYOMATOSIS IN THIS OTHERWISE NONACUTE RIGHT UPPER QUADRANT ULTRASOUND.
[2017-12-19 16:28] LABS: EGFR Non-African American 54.9 (>60)
[2017-12-19] MEDS ORDERED: NS 0.9% 1000 ML* 1,000 ML IV ONE (17:27)
[2017-12-19] MEDS ORDERED: Iodixanol* (CONTRAST) 320 MG/ML 100 ML SDV IV ONE (17:39)
--- NOTE | 2017-12-19 19:36 | ED ---
Progress - Progress Note Progress Note: Patient was received as a sign out from Dr. Nassar to Dr. Maria at [address] abd/pel results. CT abd/pel: no CT findings to correlate with patient's symptomatology. This report was reviewed by ed physician. Re-Evaluation - Re-Evaluation 1 Re-Evaluation Time: 18:40 Change: Unchanged Comment: CT results were negative, patient will be discharged home Course/Dx - Course Course Of Treatment: Patient was received as a sign out from Dr. Nassar to Dr. Maria at [address] abd/pel results. CT abd/pel: no CT findings to correlate with patient's symptomatology. This report was reviewed by ed physician. Patient was discharged to home and instructed to follow up with PCP in 1-2 days. Dx of right sided abdominal pain. - Diagnoses Provider Diagnoses: Right sided abdominal pain Discharge - Sign-Out/Discharge Documenting (check all that apply): Patient Departure - discharge - Discharge Plan Condition: Stable Disposition: HOME Patient Education Materials: Abdominal Pain (ED) Referrals: Paty Kauffman MD [Primary Care Provider] - 2 Days Additional Instructions: RETURN TO THE EMERGENCY DEPARTMENT FOR CHANGING OR WORSENING SYMPTOMS. FOLLOW UP WITH PRIMARY CARE PHYSICIAN IN 1-2 DAYS. - Attestation Statements Document Initiated by Scribe: Yes Documenting Scribe: Aman Turpin Provider For Whom Cesar is Documenting (Include Credential): Douglas Maria MD Scribe Attestation: Aman Carey , scribed for Douglas Maria MD on 12/19/17 at 2044.
--- NOTE | 2017-12-19 20:10 | RAD ---
EXAM: CT Abdomen and Pelvis With Intravenous Contrast CLINICAL HISTORY: 72 years old, male; Pain; Abdominal pain; Prior surgery; Surgery type: Appy. ; Additional info: Ruq pain TECHNIQUE: Axial computed tomography images of the abdomen and pelvis with intravenous contrast. All CT scans at this facility use at least one of these dose optimization techniques: automated exposure control; mA and/or kV adjustment per patient size (includes targeted exams where dose is matched to clinical indication); or iterative reconstruction. Coronal and sagittal reformatted images were created and reviewed. CONTRAST: 100 mL of Visi 320 administered intravenously. COMPARISON: A/P WO CT ABD/PEL W/O 04/25/2015 8:36 AM FINDINGS: Lung bases: Normal. No mass. No consolidation. ABDOMEN: Liver: Normal. No masses. Portal and hepatic veins are patent. Gallbladder and bile ducts: Normal. No radiopaque calculi. No ductal dilation. Pancreas: Normal. No mass. No ductal dilation. Spleen: Normal. No splenomegaly. Adrenals: Normal. No mass. Kidneys and ureters: No renal solid cortical lesions, calculi, or pelvocaliectasis. Stomach and bowel: Incompletely distended grossly normal stomach. Normal caliber small bowel. No colonic masses or segmental wall thickening. PELVIS: Appendix: Surgically absent appendix. Bladder: Thin-walled bladder with no focal nodularity, perivesicular stranding, or calcifications. Reproductive: Normal sized prostate. Normal seminal vesicles. ABDOMEN and PELVIS: Intraperitoneal space: Normal. No pneumoperitoneum. No ascities. Bones/joints: The spine demonstrates mild degenerative changes at multiple levels. Mild bilateral hip primary osteoarthritis. No fractures. No suspicious bone lesions. Soft tissues: Scarring along the right inguinal canal likely from prior hernia repair. There is a fat-containing umbilical hernia. No stranding. Vasculature: The aorta demonstrates mild atherosclerotic calcification. Patent IVC. Retroaortic left renal vein. No abdominal aortic aneurysm. Lymph nodes: Normal. No enlarged lymph nodes. IMPRESSION: No CT findings to correlate with patient's symptomatology.
[2017-12-19 20:59] VITALS: BP 119/77
== END 2017-12-19 20:57 | disposition home or self-care (01) ==
LOC: ED 12:54
DX: R10.11 Right upper quadrant pain (principal); R00.1 Bradycardia, unspecified; I25.2 Old myocardial infarction; I10 Essential (primary) hypertension; Z79.899 Other long term (current) drug therapy; Z90.89 Acquired absence of other organs; Z88.8 Allergy status to other drugs, medicaments and biological substances
CPT/HCPCS: 36415; 74019; 74177; 76705; 80053; 81003; 82140; 82150; 82550; 83605; 83690; 83735; 83880; 84484; 85025; 85610; 85730; 86140; 93005; 99283; Q9967